=== PATIENT | male | born 1965 | race African-American/Black ===

== ENCOUNTER 2018-09-30 10:24 | Day surgery (SDC) | payer MEDICAID, SELFPAY ==
[2018-09-30 10:45] VITALS: BP 107/73; PULSE 86; RESP 16; TEMP 36.6; O2SAT 100
[2018-09-30] MEDS: Lactated Ringers 1,000 ML 30 ML IV (11:35)
--- NOTE | 2018-09-30 12:03 | COLE_ITS ---
Date of service: 09/30/18 Time of Service: 12:02 Colonoscopy Report Date of procedure: 09/30/18 Pre-op diagnosis general: Colorectal cancer screen Post-op diagnosis procedure note: other (Normal colon to the cecum) Procedure: Colonoscopy to the cecum Surgeon: Ameya Peraza Anesthesia proc note operative: MAC (Debra Medina CRNA; ASA 2 Mallampati class) Estimated blood loss (mL): 0 Pathology: none sent Complications: None Disposition: same day Indications: 52-year-old gentleman presenting for colorectal cancer screening by colonoscopy. He has been asymptomatic, and has no family history of colorectal cancer. The colonoscopy procedure was reviewed with him, and the risks of the procedure were discussed. All his questions were answered to his satisfaction, and consent was obtained to proceed with colonoscopy Prep: Miralax/Dulcolax Procedure Start Time: 12:03 Procedure End Time: :18 Retraction Time: 12 Findings: Examining the colon from cecum to anus, no abnormalities are noted in the colon , rectum, and anorectal junction. Procedure Description: The patient was seen in the day surgery waiting area. His identification was confirmed, and procedure checked. He was then brought to the procedure room. Monitoring for telemetry, blood pressure, oxygen saturation, and end tidal CO2 monitoring were applied. An appropriate time out was performed to confirm, identification, allergies, medication, procedure, was performed. Sedation was titrated for affect by the SPECIAL PROGRAMS DIRECTOR; Once adequate sedation was achieved, I performed a inspection of the external perineum, and a digitial rectal examination. No significant external abnormalities were noted. On digital rectal examination, there was no blood, no masses, good rectal tone, and a normal prostate. I advanced the colonoscope from the anus to the cecum under direct visualization. The cecum was identified by the ileal-cecal valve, and the appendiceal orifice. The scope was then withdrawn in circumferential manner from the cecum to the rectum. No abnormalites were noted in the colon. The scope was then withdrawn into the rectum, and retroflexed. No abnormalities were noted of the rectum or anorectal junction. The scope was then withdrawn, terminating the procedure. There were no complications during the procedure, and the patient tolerated the procedure well. He was returned to the day surgery recovery area in good condition. Plan: Will continue with routine screening for colorectal cancer according to current consensus guidelines, which is currently 10 years.
--- NOTE | 2018-09-30 12:46 | PDOC.DSDIS_ITS ---
Discharge Plan Disposition Patient Disposition: HOME Condition: Good Discharge Details Reason For Visit: Colorectal cancer screen Attending Provider: Ameya Peraza Primary Care Provider: Nicky Dave Home Meds and New Rx's Prescriptions: Continue clomipramine [Anafranil] 25 mg capsule 25 mg PO DAILY Qty: 30 RF: 2 cyclobenzaprine 10 mg tablet 10 mg PO TID PRNRF: 0 Discontinued bisacodyl [Dulcolax (bisacodyl)] 5 mg tablet,delayed release (DR/EC) 10 mg PO BID Qty: 4 RF: 0 polyethylene glycol 3350 [Miralax] 17 gram/dose powder 255 g PO ONCE Qty: 255 RF: 0 Discharge Instructions Instructions: Colonoscopy (DC) Activity:: Activity as Tolerated Diet:: As Tolerated Discharge Orders Discharge Orders: Discharge Order (Routine); Ordered 09/30/18 Ordered By: Ameya Peraza DS: Diagnosis Discharge Diagnosis (1) Encounter for colorectal cancer screening: Status: Acute Asessment and Plan: Colonoscopy performed: Colonoscopy Report Date of procedure: 09/30/18 Pre-op diagnosis general: Colorectal cancer screen Post-op diagnosis procedure note: other (Normal colon to the cecum) Procedure: Colonoscopy to the cecum Surgeon: Ameya Peraza Anesthesia proc note operative: MAC (Debra Medina CRNA; ASA 2 Mallampati class) Estimated blood loss (mL): 0 Pathology: none sent Complications: None Disposition: same day Indications: 52-year-old gentleman presenting for colorectal cancer screening by colonoscopy. He has been asymptomatic, and has no family history of colorectal cancer. The colonoscopy procedure was reviewed with him, and the risks of the procedure were discussed. All his questions were answered to his satisfaction, and consent was obtained to proceed with colonoscopy Prep: Miralax/Dulcolax Procedure Start Time: 12:03 Procedure End Time: 12:18 Retraction Time: 12 Findings: Examining the colon from cecum to anus, no abnormalities are noted in the colon, rectum, and anorectal junction. Procedure Description: The patient was seen in the day surgery waiting area. His identification was confirmed, and procedure checked. He was then brought to the procedure room. Monitoring for telemetry, blood pressure, oxygen saturation, and end tidal CO2 monitoring were applied. An appropriate time out was performed to confirm, identification, allergies, medication, procedure, was performed. Sedation was titrated for affect by the ASSOCIATE DIRECTOR DATA & ANALYTICS; Once adequate sedation was achieved, I performed a inspection of the external perineum, and a digitial rectal examination. No significant external abnormalities were noted. On digital rectal examination, there was no blood, no masses, good rectal tone, and a normal prostate. I advanced the colonoscope from the anus to the cecum under direct visualization. The cecum was identified by the ileal-cecal valve, and the appendiceal orifice. The scope was then withdrawn in circumferential manner from the cecum to the rectum. No abnormalites were noted in the colon. The scope was then withdrawn into the rectum, and retroflexed. No abnormalities were noted of the rectum or anorectal junction. The scope was then withdrawn, terminating the procedure. There were no complications during the procedure, and the patient tolerated the procedure well. He was returned to the day surgery recovery area in good condition. Plan: Will continue with routine screening for colorectal cancer according to current consensus guidelines, which is currently 10 years.
[2018-09-30 13:15] VITALS: BP 105/80; PULSE 89; RESP 16; TEMP 35; O2SAT 97
== END 2018-09-30 13:10 | disposition home or self-care (01) ==
PROVIDERS: PCP Nurse Practitioner Family; Visit Provider Surgery
PROC: 0DJD8ZZ Inspection of Lower Intestinal Tract, Via Natural or Artificial Opening Endoscopic (ICD-10-PCS; CPT 45378; principal; 2018-09-30 12:00)
DX: Z12.11 Encounter for screening for malignant neoplasm of colon (principal); K21.9 Gastro-esophageal reflux disease without esophagitis; F17.210 Nicotine dependence, cigarettes, uncomplicated
CPT/HCPCS: 45378

== ENCOUNTER 2019-03-19 11:00 | Emergency (ER) | payer MEDICAID, SELFPAY ==
[2019-03-19] VITALS (11 sets, daily range): BP systolic 108–121; BP diastolic 82–83; PULSE 72–110; RESP 10–22; TEMP 37; O2SAT 92–100
--- NOTE | 2019-03-19 11:08 | ED.GENADUL_ITS ---
Discharge Plan Disposition Patient Disposition: HOME Condition: Good Discharge Details Chief Complaint: Chest Pain Clinical Impression: Dehydration, Heart palpitations Primary Care Provider: Nicky Dave ED Provider: Francis Rascon Home Meds and New Rx's Prescriptions: No Action clomipramine [Anafranil] 25 mg capsule 25 mg PO DAILY Qty: 30 RF: 2 cyclobenzaprine 10 mg tablet 10 mg PO TID PRNRF: 0 Discharge Instructions Instructions: Palpitations (ED) Additional Instructions: Please drink 10 to 12 cups of water every day. Avoid any substances which could cause an increase in your heart rate. If you notice any worsening of your symptoms, or any new symptoms such as vomiting, diarrhea, fever, chills, shortness of breath, chest pain, numbness, weakness, or fainting , please return immediately to the emergency department for reevaluation. Please follow up with your primary care provider as soon as possible for reassessment and reevaluation. As always, it was a pleasure participating in your medical care today. Referrals: Nicky Dave [Primary Care Provider] - Discharge Data Discharge Date/Time-TO BE ENTERED AT DEPARTURE: 03/19/19 12:39 Medical Decision Making This is a pleasant 54-year-old -[place] male who presents for evaluation of palpitations and dehydration. He has not been drinking much over the last 48 hours, he did do a line of Hope last night and had some vigorous sex with his this denies any other drugs or other significant activities. Upon EMS his initial arrival his heart rate was in the 130s, he was given a 250 cc bolus and upon arrival here in the ED his heart rate was down to 100. Zickel exam demonstrates no significant abnormalities aside for notably dry mucous membranes. No concerning family history of cardiac disease, personal history of cardiac disease. No history of hypertension high cholesterol or diabetes. EKG shows no evidence of STEMI, or ACS. No significant dysrhythmia. No pulmonary embolism red flags. Chest x-ray is negative for acute process. Patient was given 1-1/2 L of normal saline and had complete resolution of his symptoms. Heart rate is currently in the 60s, he is feeling much better. I did offer a monitor to go home with as well as prolonged observation here, the patient has elected to go home. Understands the risks and benefits of this. This was made through shared decision making process with full understanding. Suspected diagnosis of dehydration, compounded by his cocaine use yesterday. I have extensively reviewed the treatment plan and discharge instructions with the patient and their family. I have addressed all patient concerns at this time. The patient and family was made aware of what symptoms to monitor for that would warrant a return to the emergency department. Discussed the plan with the patient and family, they demonstrate verbal understanding and agreement with our assessment and plan at this time. EKG 11: 02 Rate 98, intervals normal, sinus rhythm, RSR prime in V2. Minimal less than 1 mm J-point elevation in V4, no evidence of ST depression. Inverted T wave in V1 and V2 peer no Q waves. No evidence of STEMI. TECHNIQUE: Imaging protocol: XR of the chest, 2 views. COMPARISON: CR CHEST 2 VIEWS PA,LAT 10/14/2015 10:25 AM FINDINGS: Lungs: Unremarkable. No consolidation. Pleural space: Unremarkable. No pleural effusion. No pneumothorax. Heart/Mediastinum: Unremarkable. No cardiomegaly. Bones/joints: Unremarkable. IMPRESSION: No acute findings. Dictated and Authenticated by: Davin Adams MD. Ordering:ROSELYN Blanco MD HPI General Date/Time Provider Initiated Documentation: 03/19/19 11:02 . HPI Narrative: This is a pleasant 53-year-old male who presents today for evaluation of palpitations. Patient states that earlier this morning he woke up and had some palpitations. Because of this he called 911, to the ER. Upon arrival to the ER the patient's heart rate was 100 105. Upon EMS initial arrival his heart rate was in the 130s, but he was given a 250 cc bolus of normal saline prior to his arrival to the ER. The patient denies any chest pain or shortness of breath. He denies any chest heaviness, tightness, arm neck or shoulder pain. He does state that last night he did a line of Coke and then had fairly vigorous sex, and over the last 48 hours he has not been drinking much of anything. He denies any abdominal pain, vomiting or diarrhea. He denies any previous cardiac history, family history of cardiac disease. No other complaints at this time. No other modifying factors. Denies PE risk factors such as recent long car rides, immobilization, recent surgery, prior history of DVT or PE, family history of PE or DVT, morbid obesity, exogenous estrogen and smoking, hemoptysis, history of cancer. Related Data Home Medications Medication Instructions Recorded Confirmed cyclobenzaprine 10 mg tablet 10 mg PO TID PRN 07/26/18 03/19/19 clomipramine 25 mg capsule 25 mg PO DAILY #30 cap 08/23/18 03/19/19 Previous Rx's Medication Instructions Recorded clomipramine 25 mg capsule 25 mg PO DAILY #30 cap 08/23/18 Allergies Allergy/AdvReac Type Severity Reaction Status Date / Time Iodinated Contrast- Oral and Allergy Unknown itching Unverified 03/19/19 11:14 IV Dye [Iodinated Contrast Media - IV Dye] diclofenac [Diclofenac] AdvReac Intermediate GI Unverified 03/19/19 11:14 ibuprofen [From Motrin] AdvReac Intermediate upset Unverified 03/19/19 11:14 stomach misoprostol AdvReac Intermediate GI Unverified 03/19/19 11:14 oxycodone [Oxycodone] AdvReac Intermediate nightmares Unverified 03/19/19 11:14 ivp dye Allergy Mild Itching Uncoded 03/19/19 11:14 Review of Systems Review of Systems All systems reviewed & are unremarkable except as noted in HPI and below PFSH Medical History History of nephrolithiasis (Acute) Nondisplaced fracture of fifth left metatarsal bone (Acute ~04/2010) Back pain, lumbosacral Erectile dysfunction Gastroesophageal reflux disease Genital herpes Hx of substance abuse Migraine Tobacco use Surgical History H/O colonoscopy (Chronic 09/30/18) Hx of arthroscopy of knee (Resolved) Hx of hernia repair (Resolved) Social History Smoking/Tobacco Use Status: Current every day Tobacco Type: cigarettes Tobacco: How many years used: 30 Alcohol Intake: current Alcohol Intake frequency: a few times a week Alcohol type: beer and wine Drug use: Daily Substance use type: marijuana and crack/cocaine Do you feel safe at home: Yes Do you feel safe in your relationship?: Yes Exam Narrative Exam Narrative: 1.Const: Well-nourished, Well-developed, appearing stated age 2.Eyes: PERRL, no conjunctival injection, and symmetrical lids. 3.ENT: Atraumatic external nose and ears. Dry MM. Neck: Symmetric, trachea midline, No thyromegaly. 4.CVS: +S1/S2, No murmurs or gallops. Peripheral pulses 2+ and equal in all extremities. Brisk capillary refill in all extremities. 5.RESP: Unlabored respiratory effort. Clear to auscultation bilaterally. No wheezes rales or rhonchi 6.GI: Soft, Nontender/Nondistended, No hepatosplenomegaly. No guarding or rebound. 7.MSK: Normocephalic/Atraumatic, Extremities w/o deformity or ttp No cyanosis or clubbing, Normal movement of all extremities 8.Skin: Warm, Dry. No rashes or lesions. 9.Neuro: log processor operator II-XII grossly intact. Sensation grossly intact, no focal neurologic deficits. 10.Psych: (AAO) x3. Appropriate mood and affect
[2019-03-19] MEDS: Normal Saline 1,000 ML 1000 ML IV (11:16)
[2019-03-19 11:17] LABS: Absolute Basophil Count 0.02 k/cumm (0.0-0.2); Absolute Eosinophil Count 0.11 k/cumm (0.0-0.7); Absolute Lymphocyte Count 1.61 k/cumm (1.2-3.4); Absolute Monocyte Count 0.54 k/cumm (0.11-0.7); Basophils % 0.5; Eosinophils % 2.8; HCT 40.9 % (40.0-50.0); HGB 14.5 g/dL (13.5-17.5); Lymphocytes % 40.5; Mean Corp. HGB Concentration 35.5 g/dL (32.0-36.0); Mean Corpuscular Hemoglobin 32.2 pg (27.0-33.0); Mean Corpuscular Volume 90.7 fL (80-95); Monocytes % 13.6; Neutrophils % 42.6; Platelet Count 249 x1000/uL (130-400); RBC 4.51 m/cumm (4.50-6.00); RBC Distribution Width 12.2 % (11.8-14.1); White Blood Cell Count 3.98 k/cumm (4.4-10.8)
--- NOTE | 2019-03-19 11:28 | DI.RAD_ITS ---
SYMPTOMS/DIAGNOSIS: PALPITATIONS PA AND LATERAL CHEST: Comparison 10/14/15. The heart is normal in size. The lungs are clear. The mediastinal structures and pleura appear intact. CONCLUSION: Normal chest.
[2019-03-19 11:35] LABS: ALT 48 U/L (12-78); AST 51 U/L (15-37); Albumin 3.4 g/dL (3.4-5.0); Alkaline Phosphatase 61 U/L (46-116); BUN 12 mg/dL (7-18); Bilirubin, Total 0.3 mg/dL (0.2-1.0); CREATININE 0.93 mg/dL (0.70-1.30); Calcium 8.5 mg/dL (8.5-10.1); Chloride 103 mmol/L (98-107); Glucose 94 mg/dL (70-100); Magnesium 1.9 mg/dL (1.8-2.4); PHOSPHORUS 2.8 mg/dL (2.6-4.7); Potassium 3.9 mmol/L (3.5-5.1); Sodium 138 mmol/L (136-145); TSH (W/Ref FT4) 0.69 uIU/mL (0.358-3.74); Total Protein 7.1 g/dL (6.4-8.2)
[2019-03-19 11:36] LABS: Troponin I < 0.02 ng/mL (0.00-0.06)
--- NOTE | 2019-03-19 11:49 | DI.VRAD_ITS ---
EXAM: XR Chest, 2 Views EXAM DATE/TIME: 03/19/2019 11:05 AM CLINICAL HISTORY: 53 years old, male; Signs and symptoms; Other: Palpitations, dizziness. TECHNIQUE: Imaging protocol: XR of the chest, 2 views. COMPARISON: CR CHEST 2 VIEWS PA,LAT 10/14/2015 10:25 AM FINDINGS: Lungs: Unremarkable. No consolidation. Pleural space: Unremarkable. No pleural effusion. No pneumothorax. Heart/Mediastinum: Unremarkable. No cardiomegaly. Bones/joints: Unremarkable. IMPRESSION: No acute findings. Dictated and Authenticated by: Davin Adams MD. Ordering:ROSELYN Blanco MD
[2019-03-19 14:08] LABS: *AMPHETAMINES SCREEN URINE Negative (Negative); *BARBITURATES SCREEN URINE Negative (Negative); *BENZODIAZEPINES SCREEN URINE Negative (Negative); Cannabinoids THC POSITIVE (Negative); Cocaine Screen,Urine POSITIVE (Negative); METHADONE URINE SCREEN Negative (Negative); OPIATES URINE SCREEN Negative (Negative); Tricyclic Antidepressants Negative (Negative)
== END 2019-03-19 12:39 | disposition home or self-care (01) ==
PROVIDERS: Emergency Provider Student in an Organized Health Care Education/Training Program; PCP Nurse Practitioner Family
DX: R00.2 Palpitations (principal); E86.0 Dehydration
CPT/HCPCS: 36415; 80053; 80307; 93005; 96360; 99285; 71046; 83735; 84100; 84443; 84484; 85025; 93010

== ENCOUNTER 2019-04-19 16:28 | Outpatient (REF) | payer MEDICAID, SELFPAY ==
[2019-04-19 21:39] LABS: ALT 46 U/L (12-78); AST 36 U/L (15-37); Albumin 3.6 g/dL (3.4-5.0); Alkaline Phosphatase 56 U/L (46-116); Bilirubin, Total 0.3 mg/dL (0.2-1.0); Ferritin 104 ng/mL (8-388); Total Protein 6.9 g/dL (6.4-8.2)
[2019-04-21 10:20] LABS: HIV-1/2 Ag & Ab Screen Negative (NEGAT)
[2019-04-21 10:21] LABS: Hepatitis B Surface Ag Negative (NEGAT); Hepatitis C Ab w Rflx HCV PCR Negative (NEGAT)
== END 2019-04-19 16:48 ==
LOC: NCHCN 16:28
PROVIDERS: PCP Nurse Practitioner Family; Visit Provider Family Medicine
DX: R74.0 Nonspecific elevation of levels of transaminase and lactic acid dehydrogenase [LDH] (principal); Z11.4 Encounter for screening for human immunodeficiency virus [HIV]; Z11.59 Encounter for screening for other viral diseases; Z01.84 Encounter for antibody response examination; Z00.00 Encounter for general adult medical examination without abnormal findings
CPT/HCPCS: 80076; 86803; 87340; 87389; 82728

== ENCOUNTER 2020-02-22 21:23 | Emergency (ER) | payer MEDICAID, SELFPAY ==
[2020-02-22 21:26] VITALS: BP 124/89; PULSE 81; RESP 21; TEMP 37.1; O2SAT 99
[2020-02-22 21:30] VITALS: RESP 16
[2020-02-22 21:59] LABS: Abs Immature Grans 0.01 k/cumm (0.0-0.09); Absolute Basophil Count 0.02 k/cumm (0.0-0.2); Absolute Eosinophil Count 0.14 k/cumm (0.0-0.7); Absolute Lymphocyte Count 1.34 k/cumm (1.2-3.4); Absolute Neutrophil Count 3.29 k/cumm (1.2-6.7); Basophils % 0.4; Eosinophils % 2.6; HCT 37.6 % (40.0-50.0); HGB 13.2 g/dL (13.5-17.5); Immature Grans % 0.2 %; Lymphocytes % 24.8; Mean Corp. HGB Concentration 35.1 g/dL (32.0-36.0); Mean Corpuscular Hemoglobin 32.2 pg (27.0-33.0); Mean Corpuscular Volume 91.7 fL (80-95); Mean Platelet Volume 8.8 fL (8.0-11.0); Monocytes % 11.1; Neutrophils % 60.9; Platelet Count 259 x1000/uL (130-400); RBC Distribution Width 12.6 % (11.8-14.1)
[2020-02-22] MEDS: Normal Saline 1,000 ML 1000 ML IV (22:03)
[2020-02-22] MEDS: LORazepam 2 MG/ML VIAL 1 MG IVP (22:03)
[2020-02-22] MEDS: Aspirin 81 MG CHEW 324 MG CH (22:03)
[2020-02-22 22:15] LABS: ALT 39 U/L (16-63); AST 33 U/L (15-37); Albumin 3.3 g/dL (3.4-5.0); Alkaline Phosphatase 47 U/L (46-116); Anion Gap 4.9 mmol/L (3-11); BUN 13 mg/dL (7-18); Bilirubin, Total 0.2 mg/dL (0.2-1.0); CO2 29.1 mmol/L (21.0-32.0); CREATININE 0.82 mg/dL (0.70-1.30); Calcium 8.7 mg/dL (8.5-10.1); Chloride 102 mmol/L (98-107); Glucose 92 mg/dL (74-106); Magnesium 2.1 mg/dL (1.8-2.4); Potassium 3.7 mmol/L (3.5-5.1); Sodium 136 mmol/L (136-145); Total Protein 6.7 g/dL (6.4-8.2)
[2020-02-22 22:16] LABS: Troponin I < 0.05 ng/Ml (<0.06)
--- NOTE | 2020-02-22 22:25 | DI.RAD_ITS ---
EXAM: XR CHEST 2V PA LATERAL CLINICAL HISTORY: chest pain TECHNIQUE: COMPARISON: XR CHEST 2V PA LATERAL from 03/19/2019 FINDINGS: The heart is not enlarged. There appear to be mild changes of COPD and pulmonary scarring. In rome rison with prior chest film of March 19, 2019 there is question of patchy new radiodensities in the rig ht middle lobe. No other significant change seen. No pleural effusion. IMPRESSION: Possible new right middle lobe infiltrate, appropriate follow-up studies requested.
--- NOTE | 2020-02-22 22:26 | ED.GENADUL_ITS ---
Discharge Plan Disposition Patient Disposition: HOME Condition: Stable Discharge Details Chief Complaint: Chest Pain Clinical Impression: Chest pain, Cocaine substance abuse Primary Care Provider: Nicky Dave ED Provider: Steven Armstrong Home Meds and New Rx's Prescriptions: Continued clomipramine [Anafranil] 25 mg capsule 25 mg PO DAILY Qty: 30 RF: 2 cyclobenzaprine 10 mg tablet 10 mg PO TID PRNRF: 0 Discharge Instructions Instructions: Chest Pain (ED) Additional Instructions: Please avoid further use of cocaine as it can cause heart attack, stroke, impotence. Continue your regularly prescribed medications. Return to the emergency department for any acute concern. Medical Decision Making <NEETA You - Last Filed: 02/22/20 23:21> Is a 54-year-old patient presenting the emergency room for complaints of chest pressure and chest pain. Patient reports onset of 5 out of 10 chest pressure which began approximately 1 hour 45 minutes prior to arrival. Patient denies associated shortness of breath. Patient describes the pain is intermittent however when he went to bed he was sitting forward to just the TV felt transiently breathless for a few seconds then reports return of his chest pain. Patient reports associated left arm tingling in the last 30 minutes no associated weakness. Patient denies headache or dizziness. Patient denies vision change. No upper respiratory symptoms. He denies cough. Patient denies any back pain. No radiating pain to neck or jaw. Patient denies nausea, vomiting or abdominal pain. Denies diaphoresis. Does report sweaty palms bilaterally. Patient does admit to 4 shots of alcohol, smoking 2 joints and snorting 1 line of cocaine today. Patient does report a history of chest pain approximately 1 year ago after similar use and reports he was dehydrated. Patient has no personal history of [place]. Patient has a [id number] smoking history, patient has a history of approximately 15 years of crack use, he has not used in the last 16 years. Patient reports continued cocaine use which he approximates twice per month. Patient smokes marijuana daily. Patient denies use of any daily medications. Patient reports family history includes mother having strokes prior to the age of 65 and of a heart attack at the age of 67, father had no significant cardiac history. Patient denies taking any aspirin prior to arrival. Patient denies any other concerns or complaints this evening. Initial evaluation of the patient reveals normal vital signs. Regular heart rate. Patient in no apparent distress at this time. Patient is continue to complain of 5 out of 10 pain. Patient has clear breath sounds. Normal cardiovascular exam. No abdominal pain on exam. No obvious distal edema present. Patient has easy unlabored breathing. He is in no apparent distress at this time. Cardiac labs as well as EKG and chest x-ray ordered. Patient's initial EKG reveals sinus rhythm with a heart rate of 68. Question of ST segment elevation isolated to V3. QTC of 378. This seems new compared to his old EKG on 03/19/2019. This was reviewed with Dr. Steven Armstrong. Patient given aspirin as well as Ativan ordered for symptomatic relief. Given concern of patient's symptoms likely due to vasospasm given his drug use prior to onset of symptoms. Patient's labs reveal no significant leukocytosis. Red blood cells 4.1, H&H 13.2 and 37.6 respectively. Patient has no electrolyte abnormalities noted. Patient's initial troponin is normal. Patient's chest x-ray reveals no acute findings. Specifically no cardiomegaly or pleural effusion. No identified infectious process. After patient's Ativan he is reporting symptomatic relief. We will plan to sign patient out to Dr. Steven Armstrong pending repeat troponin and EKG. <Steven Armstrong MD - Last Filed: 02/23/20 01:36> Received signout from physician assistant production editor Patrick, please see her note regarding details of the initial presentation, exam, plan of care. Remains chest pain-free throughout my care. Repeat troponin obtained and negative. Patient admonished to cease use of cocaine. He is stable, pain-free, appropriate discharged home at this time. ECG Data Interpretation: EKG at 0114 hrs. reveals normal sinus rhythm, rate of 71, the QRS is narrow, there was note of discrete ST segment changes to V3 on the initial EKG taken at 2130 hrs. These have appeared to resolve. There is no ST segment elevation HPI <NEETA You - Last Filed: 02/22/20 23:21> General Date/Time Provider Initiated Documentation: 02/22/20 21:24 . HPI Narrative: Patient presents for complaints of chest pressure and mild discomfort for the last 1 hour and 45 minutes. Patient reports symptoms have been intermittent. Patient reports symptoms resolved within when sitting in bed he fell transiently breathless and had return of chest pain. Patient denies obvious shortness of breath, difficulty breathing or increase in respiratory effort. Denies headache or dizziness. Denies diaphoresis. Does report mild swelling of his palms bilaterally associated with the pressure. Patient does report a tingling into his left arm which he noted in the last 30 minutes. Patient denies obvious weakness. Denies abdominal pain, nausea or vomiting. Patient reports today he has had 4 shots of alcohol, smoke 2 joints, use 1 line of cocaine. Patient reports cocaine use was approximately 1 to 2 hours prior to onset of the symptoms. Patient does report a history of chest pain 1 year ago which he describes as very similar to today. At that time patient was noted to be dehydrated. Patient does report occasional sensation of heart racing since onset of symptoms. Related Data Home Medications Medication Instructions Recorded Confirmed cyclobenzaprine 10 mg tablet 10 mg PO TID PRN 07/26/18 03/19/19 clomipramine 25 mg capsule 25 mg PO DAILY #30 cap 08/23/18 03/19/19 Previous Rx's Medication Instructions Recorded clomipramine 25 mg capsule 25 mg PO DAILY #30 cap 08/23/18 Allergies Allergy/AdvReac Type Severity Reaction Status Date / Time Iodinated Contrast Media Allergy Unknown itching Unverified 03/19/19 11:14 [Iodinated Contrast Media - IV Dye] diclofenac [Diclofenac] AdvReac Intermediate GI Unverified 03/19/19 11:14 ibuprofen [From Motrin] AdvReac Intermediate upset Unverified 03/19/19 11:14 stomach misoprostol AdvReac Intermediate GI Unverified 03/19/19 11:14 oxycodone [Oxycodone] AdvReac Intermediate nightmares Unverified 03/19/19 11:14 ivp dye Allergy Mild Itching Uncoded 03/19/19 11:14 General Stated Complaint: Chest Pain BRENDA: 2 Review of Systems <NEETA You - Last Filed: 02/22/20 23:21> All systems reviewed & are unremarkable except as noted in HPI and below Constitutional Constitutional: Denies chills, Denies excessive sweating, Denies fatigue, Denies fever(s), Denies headache(s), Denies lethargy, Denies malaise and Denies weakness ENT Ears, Nose, Mouth, and Throat: Denies dizziness, Denies headache(s), Denies nasal discharge, Denies neck pain and Denies sore throat Cardiovascular Cardiovascular: Reports chest pain, Denies diaphoresis, Denies syncope, Denies lightheadedness, Reports radiating jaw, neck or arm pain (Tingling in left arm), Reports palpitations and Denies dyspnea Respiratory Respiratory: Denies cough and Denies dyspnea Gastrointestinal Gastrointestinal: Denies abdominal pain, Denies cramping, Denies heartburn, Denies diarrhea, Denies nausea and Denies vomiting Genitourinary Genitourinary: Denies oliguria, Denies difficulty urinating and Denies dysuria Musculoskeletal Musculoskeletal: Denies neck pain and Denies numbness Neurologic Neurologic: Denies dizziness, Denies syncope, Denies headache(s), Denies numbness and Denies weakness Endocrine Endocrine: Denies excessive sweating, Denies fatigue and Reports palpitations PFSH <NEETA You - Last Filed: 02/22/20 23:21> Medical History Back pain, lumbosacral Erectile dysfunction Gastroesophageal reflux disease Genital herpes History of nephrolithiasis (Acute) Hx of substance abuse Migraine Nondisplaced fracture of fifth left metatarsal bone (Acute ~04/2010) Tobacco use Surgical History (Updated 10/13/18 @ 10:48 by Andra Felder RN) H/O colonoscopy (Chronic 09/30/18) 09/30/18 Dr Peraza, no abnormalities, repeat 10 years Hx of arthroscopy of knee (Resolved) Hx of hernia repair (Resolved) Social History Smoking/Tobacco Use Status: Current every day Tobacco Type: cigarettes Smoking packs per day: 1 Smoking cigarettes per day: 20.0 Years smoked: 30 Smoking pack- years: 30.00 Tobacco: How many years used: 30 Alcohol Intake: current Alcohol Intake frequency: 0-2 drinks per day Alcohol type: beer and wine Drug use: Occasionally Substance use type: marijuana and crack/cocaine Details: snorts cocaine 1/week Do you feel safe at home: Yes Do you feel safe in your relationship?: Yes Exam <NEETA You - Last Filed: 02/22/20 23:21> Narrative Exam Narrative: CONST: Healthy appearing patient, in no acute distress. Well hydrated. Alert and oriented. HENMT: Head nomocephalic, normal to inspection. Atraumatic. Hearing grossly normal. EYES: General normal appearance. Alignment normal. Eyelids normal. Conjunctiva normal. Sclera normal. PERRL. NECK: Normal visual inspection. FROM. No lymphadenopathy. Trachea midline. No Midline tenderness. CHEST: Normal insepection of the chest. RESP: Normal respiratory effort. Speaking full sentences. No cough. No wheezing. No retractions. Clear to auscaltation. Breath sound equal and present bilaterally. CARDIO: No JVD. Normal PMI. Regular Rate. Regular Rhythm. Normal peripheral pulses. GI: Normal inspection of abdomen. No distension. Soft. Nontender. Bowel sounds present in all 4 quadrants. No rebound. No gaurding. MUSCULOSKELETAL: Normal Gait. FROM of all extremities. Sensation intact distally. No distal lower extremity edema present bilaterally SKIN: Normal. Dry. No rashes. NEURO: Alert and awake. Speech clear. PSYCH: Normal affect. Cooperative. Course <NEETA You - Last Filed: 02/22/20 23:21> Vital Signs Vital signs: Vital Signs Temperature 37.1 C 02/22/20 21:26 Pulse 81 02/22/20 21:26 Respiratory Rate 21 02/22/20 21:26 Blood Pressure 124/89 02/22/20 21:26 Pulse Oximetry 99 02/22/20 21:26 Temperature 37.1 C 02/22/20 21:26 Temperature Source Skin 02/22/20 21:26 Pulse 81 02/22/20 21:26 Respiratory Rate 16 02/22/20 21:30 Respiratory Effort 02/22/20 21:30 Respiratory Depth Normal 02/22/20 21:30 Respiratory Pattern Normal 02/22/20 21:30 Blood Pressure 124/89 02/22/20 21:26 Blood Pressure Position Sitting 02/22/20 21:26 Pulse Oximetry 99 02/22/20 21:26 Oxygen Delivery Method Room Air 02/22/20 21:26 Oxygen Flow Rate 0 02/22/20 21:26 Pain Level 1 02/22/20 21:26 Lab/Test Results Lab/Test Results: Laboratory Tests Range/Units 02/22/20 02/22/20 21:55 21:55 WBC (4.4-10.8) k/cumm 5.40 RBC (4.50-6.00) m/cumm 4.10 L Hgb (13.5-17.5) g/dL 13.2 L Hct (40.0-50.0) % 37.6 L MCV (80-95) fL 91.7 MCH (27.0-33.0) pg 32.2 MCHC (32.0-36.0) g/dL 35.1 RDW (11.8-14.1) % 12.6 Plt Count (130-400) x1000/uL 259 MPV (8.0-11.0) fL 8.8 Immature Gran % % 0.2 Neutrophils % 60.9 Lymphocytes % 24.8 Monocytes % 11.1 Eosinophils % 2.6 Basophils % 0.4 Absolute Neutrophils (1.2-6.7) k/cumm 3.29 Absolute Lymphocytes (1.2-3.4) k/cumm 1.34 Absolute Monocytes (0.11-0.7) k/cumm 0.60 Absolute Eosinophils (0.0-0.7) k/cumm 0.14 Absolute Basophils (0.0-0.2) k/cumm 0.02 Sodium (136-145) mmol/L 136 Potassium (3.5-5.1) mmol/L 3.7 Chloride (98-107) mmol/L 102 Carbon Dioxide (21.0-32.0) mmol/L 29.1 Anion Gap (3-11) mmol/L 4.9 BUN (7-18) mg/dL 13 Creatinine (0.70-1.30) mg/dL 0.82 Estimated GFR/1.73 m2 (mL/min/1.73m2) >= 60.00 Glucose (74-106) mg/dL 92 Calcium (8.5-10.1) mg/dL 8.7 Magnesium (1.8-2.4) mg/dL 2.1 Total Bilirubin (0.2-1.0) mg/dL 0.2 AST (15-37) U/L 33 ALT (16-63) U/L 39 Alkaline Phosphatase (46-116) U/L 47 Troponin I (<0.06) ng/Ml < 0.05 Total Protein (6.4-8.2) g/dL 6.7 Albumin (3.4-5.0) g/dL 3.3 L Sign Out <NEETA You - Last Filed: 02/22/20 23:21> Sign Out Data: Sign Out Comment: signed out pending disposition, repeat troponin, and repeat ECG Last updated by Ellie Nguyen PA at 02/22/20 23:19
--- NOTE | 2020-02-22 22:46 | DI.VRAD_ITS ---
PROCEDURE INFORMATION: Exam: XR Chest, 2 Views Exam date and time: 02/22/2020 10:25 PM Age: 54 years old Clinical indication: Chest pain; Type not specified TECHNIQUE: Imaging protocol: XR of the chest Views: 2 views. COMPARISON: CR XR CHEST 2V PA LATERAL 03/19/2019 11:28 AM FINDINGS: Lungs: Unremarkable. No consolidation. Pleural space: Unremarkable. No pleural effusion. No pneumothorax. Heart/Mediastinum: Unremarkable. No cardiomegaly. Bones/joints: Unremarkable. IMPRESSION: No acute findings. Dictated and Authenticated by: Balwinder Caro MD. Ordering:ALBERTO Argueta MD
[2020-02-22 23:01] VITALS: BP 105/61; PULSE 71; RESP 14; O2SAT 96
[2020-02-23 01:18] VITALS: BP 108/75; PULSE 64; RESP 17; TEMP 36.7; O2SAT 94
[2020-02-23 01:32] LABS: Troponin I < 0.05 ng/Ml (<0.06)
--- NOTE | 2020-02-23 09:42 | ED.FU.B_ITS ---
Radiologist called the ED to note that patient's chest x-ray from last evening notes a possible new right middle lobe infiltrate. This chest x-ray was read as negative by virtual radiology last night. Per review of patient's chart, he was seen last night for chest tightness but denied any cough or shortness of breath, and he was afebrile and a normal white blood cell count but with an initial O2 sat of 99% then 94%. Spoke with patient over the phone this morning and he states he had had some chest tightness but denied any fever, cough or shortness of breath. This patient has a history of tobacco smoking, marijuana and cocaine use in addition to daily alcohol so will treat these cxr findings with antibiotics. A prescription for Augmentin 875/1 2 5 mg, 1 tab p.o. twice daily x7 days, # 14 was called into [facility] pharmacy. Patient was advised to follow-up with his primary care doctor or return here with any concerns.
== END 2020-02-23 01:50 | disposition home or self-care (01) ==
PROVIDERS: Physician Assistant; Emergency Provider Emergency Medicine; PCP Nurse Practitioner Family
DX: R07.89 Other chest pain (principal); F14.10 Cocaine abuse, uncomplicated
CPT/HCPCS: 80053; 93005; 96361; 96374; 99284; 71046; 83735; 84484; 85025; 93010; J2060

== ENCOUNTER 2020-04-01 00:56 | Outpatient (CLI) | payer MEDICAID, SELFPAY ==
--- NOTE | 2020-04-01 09:00 | ETT_ITS ---
APPROVED REPORT Exam: Exercise Treadmill Patient Location: Out-Patient Room/Bed: Stress Nurse: Yanelis Ball RN BMI: 19.78 Indications: Patient reports intermittent midsternal/substernal chest pressure (5/10 at worst) at res t (and belching) and ???when thinking??? for the past 3 weeks. Patient states he has been under a lot of pressure recently being engaged and with his brother who has been diagnosed with stage 4 cancer. Medical History Medical History: Panic Attacks. Cardiac Medications: No cardiac medications per patient. Allergies: Iodinated Contrast, Misoprostol, Oxycodone, Ibuprofen, Diclofenac. Cardiac Risk Factors: FHX of CAD, Smoking Previous Cardiac Procedures: None Pretest Chest Pain Characteristics: None Exercise History: Physically active Physical Disabilities: None Lung Sounds: Clear to auscultation Heart Sounds: Regular Stress Test Details Test: Exercise stress testing was performed using a Felipe protocol. Rest Stress HR Resting HR Supine: 57 bpm Max Heart Rate (APMHR): 167 bpm Target HR (85% APMHR): 141 bpm Max HR Achieved: 169 bpm % of APMHR: 101 HR response to stress: Normal HR response to stress BP Resting BP Supine: 104/68 mmHg Max BP: 150/64 mmHg BP response to stress: Normal blood pressure response to stress. ECG Resting ECG: Sinus Rhythm Stress ECG: Sinus Tachycardia ST Change: Normal Arrhythmia: None Recovery ECG: Sinus Rhythm Recovery ST Change: Normal Recovery Arrhythmia: None Clinical Reason for Termination: Fatigue Stress Symptoms: None Exercise duration: 12 min16 sec Highest Stage Reached: Stage 5: 5.0 mph at 18% grade. Exercise capacity: 13.65 METs Functional Capacity: Above average capacity Stress ECG Conclusion 1. The patient exercised for 12 minutes (14 METS) 2. Rate-pressure product was 18,000. The patient had no symptoms during stress and test was stopped due to fatigue 3. There was no evidence of ischemia on the ECG portion of the exam. 4. The Burgos Score ( 12) estimates an annual cardiovascular mortality of 0% and a five year survival o f 96%. Using the Burgos Score there is a low probability of any angiographic coronary disease. Stress Test Summary STAGE Time (mins) Speed (mph) Grade (%) HR BP SYMPTOMS METS Supine 57 104/68 1 3 1.7 10 100 112/64 4.6 2 6 2.5 12 112 128/60 7 3 9 3.4 14 125 134/60 10.2 4 12 4.2 16 145 12.9 1 min recovery 119 150/64 3 min recovery 71 136/68 6 min recovery 72 110/64
== END 2020-04-01 01:16 ==
PROVIDERS: PCP Family Medicine; Visit Provider Family Medicine
DX: R07.89 Other chest pain (principal); F41.0 Panic disorder [episodic paroxysmal anxiety]; Z82.49 Family history of ischemic heart disease and other diseases of the circulatory system
CPT/HCPCS: 93017

== ENCOUNTER 2020-05-06 14:52 | Outpatient (REF) | payer MEDICAID, SELFPAY ==
[2020-05-11 06:51] LABS: SARS-CoV-2 RNA Undetected (Undetected); SARS-CoV-2 Specimen Source Nasopharynx
== END 2020-05-06 15:12 ==
LOC: NCHCN 14:52
PROVIDERS: PCP Family Medicine; Visit Provider Nurse Practitioner Family
DX: Z20.828 Contact with and (suspected) exposure to other viral communicable diseases (principal)
CPT/HCPCS: U0003

== ENCOUNTER 2020-08-18 21:53 | Outpatient (REF) | payer MEDICAID, SELFPAY ==
[2020-08-20 15:10] LABS: COVID-19 RT-PCR Result Not Detected ((See Note))
== END 2020-08-18 22:13 ==
LOC: LBN 21:53
PROVIDERS: PCP Family Medicine; Visit Provider Nurse Practitioner Adult Health
DX: Z11.59 Encounter for screening for other viral diseases (principal)
CPT/HCPCS: U0003

== ENCOUNTER 2020-10-10 22:34 | Outpatient (REF) | payer MEDICAID, SELFPAY ==
[2020-10-10 19:09] LABS: Calculated LDL 91 mg/dL (<100); Cholesterol 200 mg/dL (<200); HDL Cholesterol 96 mg/dL (40-60); Triglyceride 66 mg/dL (<150)
[2020-10-10 19:29] LABS: Hemoglobin A1C 5.3 % (<5.7)
[2020-10-12 10:52] LABS: HIV-1/2 Ag & Ab Screen Negative (Negative)
[2020-10-14 09:29] LABS: Hepatitis B Surface Ag Negative (Negative)
== END 2020-10-10 22:54 ==
LOC: LBN 22:34
PROVIDERS: PCP Family Medicine; Visit Provider Family Medicine
DX: Z13.220 Encounter for screening for lipoid disorders (principal); Z13.1 Encounter for screening for diabetes mellitus; Z11.4 Encounter for screening for human immunodeficiency virus [HIV]; Z11.59 Encounter for screening for other viral diseases
CPT/HCPCS: 80061; 87340; 87389; 83036

== ENCOUNTER 2020-12-04 19:26 | Outpatient (REF) | payer MEDICAID, SELFPAY ==
[2020-12-06 17:07] LABS: COVID-19 RT-PCR Result Not Detected ((See Note))
== END 2020-12-04 19:27 | disposition home or self-care (01) ==
LOC: LBN 19:26
PROVIDERS: PCP Family Medicine; Visit Provider Nurse Practitioner Adult Health
DX: Z20.822 Contact with and (suspected) exposure to COVID-19 (principal)
CPT/HCPCS: U0003

== ENCOUNTER 2021-12-18 13:17 | Outpatient (REF) | payer MEDICAID, SELFPAY ==
[2021-12-18 13:20] VITALS: BP 107/71; PULSE 110; RESP 16; TEMP 36.4; O2SAT 100
--- NOTE | 2021-12-18 13:26 | ED.GENADUL_ITS ---
Discharge Plan Disposition Patient Disposition: HOME Condition: Stable Discharge Details Clinical Impression: Contusion of left shoulder, Contusion of left elbow, Contusion of rib on left side Primary Care Provider: Nguyễn Garcia ED Provider: Jayne Nance Home Meds and New Rx's Prescriptions: No Action No Known Home Meds 0RF Discharge Instructions Instructions: Contusion in Adults (ED), Rib Contusion (ED) Additional Instructions: Drink plenty of fluids and get plenty of rest. Alternate tylenol and motrin as needed and directed for pain. Apply ice to the affected area several times daily for 20 minutes at a time. Follow up with your primary care doctor in 1 week as needed. Return to the emergency department with any worsening or new concerning symptoms such as fever, cough, shortness of breath or any other concerns. Stand Alone Forms: Work Release Discharge Data Discharge Date/Time-TO BE ENTERED AT DEPARTURE: 12/18/21 15:36 Discharge Physician: Jayne Nance Medical Decision Making 56yo M presents with left shoulder, left elbow and left rib pain after slip and fall onto the ground 2 days ago. Denies any head injury, difficulty breathing, abdominal pain or vomiting. Vitals within normal limits on my assessment. Patient has tenderness to palpation of the left superior shoulder, left olecranon and left lateral ribs. Lungs clear. Abdomen soft nontender. No orthopedic deformities noted. Patient referred for x-rays which were unremarkable. Patient requested a work note. Advised on the importance of ice, alternating Tylenol and Motrin and rest. Advised to follow up with the primary care doctor for re-evaluation. Usual and customary return precautions given prior to discharge. Medical Records Medical records reviewed: Yes I reviewed the patient's medical records. Imaging Data Radiologic Study: Radiologist's impression: XR RIBS LT W PA ? LAT CHEST CLINICAL HISTORY: ? fall onto ground, pain L mid ribs, r/o fx. ? TECHNIQUE:? 2D digital imaging was performed. COMPARISON:? No exams were available for comparison FINDINGS: Left rib cage: There is no obvious left rib fracture.? No rib lesion. X-ray: Heart size normal.? Mediastinum is not widened.? Lungs are clear.? No pleural effusion.? No pneumothorax IMPRESSION: No obvious left rib fracture. No pneumothorax nor lung contusion. XR SHOULDER LT COMPLETE 2+V CLINICAL HISTORY: ? fall onto ground, r/o fx. ? TECHNIQUE:? 2D digital imaging was performed. COMPARISON:? No exams were available for comparison FINDINGS: No evidence of fracture or dislocation.? No abnormal soft tissue calc ifications.? Subacromial space appears unremarkable.? AC joint and ipsilateral clavicle unremarkable.? Bone density is normal. IMPRESSION: No fracture XR ELBOW LT COMPLETE CLINICAL HISTORY: ? fall onto elbow, tender olecranon, r/o fx. ? TECHNIQUE:? 2D digital imaging was performed. COMPARISON:? No exams were available for comparison FINDINGS: No evidence of fracture or joint effusion.? No swelling of the olecranon bursa.? Radial head unremarkable.? Epicondyles unremarkable.? Bone density normal IMPRESSION: No fracture. HPI General Mode of arrival: ambulatory . Date/Time Provider Initiated Documentation: 12/18/21 13:18 . Limitations to Documentation: no limitations . Information obtained by: patient . HPI Narrative: Patient is a 56-year-old male presents the ED with a complaint of left shoulder, left elbow and left wrist pain after fall 2 days ago. Patient states he tripped in a break in the ground and landed on his left elbow and left shoulder. He states he then hit his left ribs on the ground. He denies any head injury. He admits to pain with deep breath but otherwise denies any difficulty breathing, anterior chest pain, abdominal pain, nausea, vomiting. Related Data Home Medications Medication Instructions Recorded Confirmed Unknown [No Known Home Meds] 12/18/21 12/18/21 Allergies Allergy/AdvReac Type Severity Reaction Status Date / Time Iodinated Contrast Media Allergy Unknown itching Unverified 12/18/21 13:25 [Iodinated Contrast Media - IV Dye] diclofenac [Diclofenac] AdvReac Intermediate GI Unverified 12/18/21 13:25 ibuprofen [From Motrin] AdvReac Intermediate upset Unverified 03/19/19 11:14 stomach misoprostol AdvReac Intermediate GI Unverified 12/18/21 13:25 oxycodone [Oxycodone] AdvReac Intermediate nightmares Unverified 03/19/19 11:14 ivp dye Allergy Mild Itching Uncoded 03/19/19 11:14 General Stated Complaint: Chest/Rib BRENDA: 4 Review of Systems All systems reviewed & are unremarkable except as noted in HPI and below Constitutional Constitutional: Reports as per HPI, Denies chills and Denies fever(s) Eyes Eyes: Denies blurry vision ENT Ears, Nose, Mouth, and Throat: Denies dizziness, Denies sore throat and Denies throat swelling Cardiovascular Cardiovascular: Denies chest pain and Denies dyspnea Respiratory Respiratory: Denies cough and Denies dyspnea Gastrointestinal Gastrointestinal: Denies abdominal pain, Denies diarrhea and Denies vomiting Genitourinary Genitourinary: Denies hematuria and Denies dysuria Musculoskeletal Musculoskeletal: Denies back pain and Denies numbness Comments: L shoulder/elbow pain, L rib pain Integumentary/Breasts Skin/Breast: Denies lesions and Denies rash Neurologic Neurologic: Denies dizziness, Denies localized weakness and Denies numbness Allergic/Immunologic Allergic/Immunologic: Denies throat swelling PFSH All Active Problems (Updated 12/18/21 @ 15:14 by Jayne Nance DO) Contusion of left shoulder (Acute) Contusion of left elbow (Acute) Contusion of rib on left side (Acute) Encounter for colorectal cancer screening (Acute) Plantar wart (Acute 07/25/14) Neoplasm of skin (Acute 01/22/14) Medical History (Updated 12/18/21 @ 15:14 by Jayne Nance DO) Back pain, lumbosacral Erectile dysfunction Gastroesophageal reflux disease Genital herpes History of nephrolithiasis Hx of substance abuse Migraine Nondisplaced fracture of fifth left metatarsal bone (~04/2010) Tobacco use Surgical History (Updated 10/13/18 @ 10:48 by Andra Felder RN) H/O colonoscopy (09/30/18) 09/30/18 Dr Peraza, no abnormalities, repeat 10 years Hx of arthroscopy of knee Hx of hernia repair Social History Smoking/Tobacco Use Status: Current every day Tobacco Type: cigarettes Smoking packs per day: 1 Smoking cigarettes per day: 20.0 Years smoked: 30 Smoking pack- years: 30.00 Tobacco: How many years used: 30 Smoking risk assessment performed?: Yes Alcohol Intake: current Alcohol Intake frequency: 0-2 drinks per day Alcohol type: beer and wine Drug use: Occasionally Substance use type: marijuana Details: 3 sober from cocaine Do you feel safe at home: Yes Do you feel safe in your relationship?: Yes Exam Const General: cooperative and no acute distress Orientation: alert, awake and oriented x3 HENMT Head: normal to inspection Mouth: oral mucosae normal Eyes General: appearance normal, both eyes and all related structures Neck Neck: normal visual inspection Chest Chest/axillae images: 1. Tenderness to palpation to left anterior lateral ribs. There is no evidence of erythema, edema, crepitus, step-off or open wounds. Resp Effort & Inspection: normal respiratory effort and able to speak in complete sentences Auscultation: clear to auscultation bilaterally Cardio Rate: regular rate GI Palpation: soft, not firm, no guarding, not rigid and nontender Back/Spine/Pelvis Cervical Spine: No cervical spinal tenderness Thoracic/Lumbar Spine: No thoracic spinal tenderness and No lumbar spinal tenderness Skin General skin exam: no rashes or lesions noted Neuro General: patient alert, patient awake and patient oriented x3 Motor: muscle tone normal throughout Extrem Other: Tenderness to palpation to left distal clavicle near shoulder. There is no significant tenderness to palpation to left anterior posterior shoulder. There is pain with range of motion specifically abduction at left shoulder. No tenderness to palpation to remainder of clavicle. There is no tenderness to palpation to left upper arm. There is tenderness overlying left olecranon but no tenderness overlying the epicondyles or radial head. No tenderness to palpation or pain with range of motion in left wrist or hand. There is no deformity to the left upper extremity. Normal range of motion to right upper extremity. Psych Appearance: grossly normal Affect: normal affect Course Vital Signs Vital signs: Vital Signs Temperature 97.5 F L 12/18/21 13:20 Pulse 110 H 12/18/21 13:20 Respiratory Rate 16 12/18/21 13:20 Blood Pressure 107/71 12/18/21 13:20 Pulse Oximetry 100 12/18/21 13:20 Temperature 97.5 F L 12/18/21 13:20 Temperature Source Skin 12/18/21 13:20 Pulse 110 H 12/18/21 13:20 Respiratory Rate 16 12/18/21 13:20 Blood Pressure 107/71 12/18/21 13:20 Pulse Oximetry 100 12/18/21 13:20 Oxygen Delivery Method Room Air 12/18/21 13:20 Oxygen Flow Rate 0 12/18/21 13:20 Pain Level 7 12/18/21 13:20
--- NOTE | 2021-12-18 13:45 | DI.RAD_ITS ---
Exam(s) XR RIBS LT W PA LAT CHEST EXAM: XR RIBS LT W PA LAT CHEST CLINICAL HISTORY: fall onto ground, pain L mid ribs, r/o fx. TECHNIQUE: 2D digital imaging was performed. COMPARISON: No exams were available for comparison FINDINGS: Left rib cage: There is no obvious left rib fracture. No rib lesion. X-ray: Heart size normal. Mediastinum is not widened. Lungs are clear. No pleural effusion. No pn eumothorax IMPRESSION: No obvious left rib fracture. No pneumothorax nor lung contusion. DATA REPOSITORY: RADIATION DOSE DELIVERED:
--- NOTE | 2021-12-18 13:45 | DI.RAD_ITS ---
Exam(s) XR SHOULDER LT COMPLETE 2+V EXAM: XR SHOULDER LT COMPLETE 2+V CLINICAL HISTORY: fall onto ground, r/o fx. TECHNIQUE: 2D digital imaging was performed. COMPARISON: No exams were available for comparison FINDINGS: No evidence of fracture or dislocation. No abnormal soft tissue calcifications. Subacromial space a ppears unremarkable. AC joint and ipsilateral clavicle unremarkable. Bone density is normal. IMPRESSION: No fracture DATA REPOSITORY: RADIATION DOSE DELIVERED:
--- NOTE | 2021-12-18 13:45 | DI.RAD_ITS ---
Exam(s) XR ELBOW LT COMPLETE EXAM: XR ELBOW LT COMPLETE CLINICAL HISTORY: fall onto elbow, tender olecranon, r/o fx. TECHNIQUE: 2D digital imaging was performed. COMPARISON: No exams were available for comparison FINDINGS: No evidence of fracture or joint effusion. No swelling of the olecranon bursa. Radial head unremark able. Epicondyles unremarkable. Bone density normal IMPRESSION: No fracture. DATA REPOSITORY: RADIATION DOSE DELIVERED:
[2021-12-18] MEDS: Acetaminophen 500 MG TAB 1000 MG PO (13:59)
[2021-12-18 15:26] VITALS: PULSE 86; O2SAT 99
[2022-02-02 16:59] LABS: HCT 44.5 % (40.0-50.0); HGB 14.7 g/dL (13.5-17.5); MCH 31.5 pg (27.0-33.0); MCV 95.5 fL (80-95); MPV 10.1 fL (8.0-11.0); Platelet Count 317 10^3/uL (130-400); RBC 4.66 10^6/uL (4.36-5.78); RDW 12.2 % (11.8-14.1); WBC 5.88 10^3/uL (4.4-10.8)
[2022-02-02 17:34] LABS: BUN 19 mg/dL (7-18); CREATININE 1.3 mg/dL (0.70-1.30); Calcium 8.9 mg/dL (8.5-10.1); Chloride 105 mmol/L (98-107); Estimated GFR 57.31 (mL/min/1.73m2); Glucose 77 mg/dL (74-106); Potassium 4.5 mmol/L (3.5-5.1); Sodium 140 mmol/L (136-145)
[2022-02-03 18:50] LABS: PSA, Screening 0.9 ng/mL (<=3.5)
== END 2022-02-02 11:07 | disposition home or self-care (01) ==
LOC: NCHCN 02-02 11:06
PROVIDERS: Emergency Provider Physician Assistant; PCP Family Medicine; Visit Provider Family Medicine
DX: S40.012A Contusion of left shoulder, initial encounter (principal); S50.02XA Contusion of left elbow, initial encounter; S20.212A Contusion of left front wall of thorax, initial encounter; W01.0XXA Fall on same level from slipping, tripping and stumbling without subsequent striking against object, initial encounter
CPT/HCPCS: 80048; 84153; 85027; 99284; 71046; 71100; 73030; 73080; 99283

== ENCOUNTER → 2022-04-03 00:07 | Outpatient (CLI) | payer MEDICAID, SELFPAY ==
--- NOTE | 2022-04-03 10:23 | DI.CTLCSR_ITS ---
Exam(s) CT CHEST LUNG CANCER SCREEN EXAM: CT CHEST LUNG CANCER SCREEN CLINICAL HISTORY: SCREENING,ACTIVE SMOKER,[id number] HISTORY, PREVENTIVE HEALTH CARE,Z00.00 TECHNIQUE: Imaging Protocol: Axial computed tomography images with coronal and sagittal reformatted images were created and reviewed COMPARISON: CR CHEST 2 VIEWS PA,LAT from 10/14/2015 CR XR RIBS LT W PA LAT CHEST from 12/18/2021 FINDINGS: Tracheobronchial tree: Patent where visualized. Pulmonary parenchyma: No consolidation or dominant measurable mass. Mild centrilobular emphysematous changes are present. Lung Nodules: There is a triangular shaped 3 mm nodule contiguous with the lateral aspect of the righ t major fissure. There is a 3 mm triangular shaped nodule contiguous with the right minor fissure. There is a 3 mm nodule in the lateral aspect of the right middle lobe. There is a 2 mm nodule in the left upper lobe. There is a 3 mm nodule in the left lower lobe. Mediastinum and Naty: No dominant adenopathy or fluid collection. The esophagus is unremarkable. Thyroid gland: Unremarkable. Lymph nodes: Unremarkable. Pleura: No effusion or pneumothorax. Heart: The heart is not dilated. Coronary artery calcifications are present. No pericardial effusion . Aorta: Thoracic aorta non-dilated.Atherosclerosis is present. Upper abdomen: Unremarkable. Soft Tissues: Unremarkable. Bones: Within normal limits. There is an old healed left rib fracture. There is an unchanged area of sclerosis involving the posterolateral aspect of the left 7th rib. This is unchanged dating back to 2014. This is likely benign. IMPRESSION: 1. Bilateral pulmonary nodules. The largest measures 3 mm. 2. Mild centrilobular emphysema. Lung RADS Cat 2 - Benign Appearance / Behavior: Nodules with a very low likelihood of becoming a clin ically active cancer due to size or lack of growth Lung-RADS 1.0 CATEGORIES: Category 0 - Prior chest CT exam(s) being located for comparison. Category 1 - Annual screening in 12 months. No nodules or definitely benign nodules. Category 2 - Annual screening in 12 months. Benign appearance. Nodules with low likelihood of becomin g active cancer. Category 3 - 6-month follow-up. Probably benign. Short-term follow-up suggested. Nodules with low lik elihood of becoming active cancer. Category 4A - 3-month follow-up and CT/PET if >8 mm in size. Suspicious finding. Findings which requi re additional testing. Category 4B - Findings which require additional testing and tissue sampling. Suspicious finding. Category 4X - Category 3 or 4 nodules with additional features or imaging findings that increases the suspicion of malignancy. Modifier S- Potentially clinically significant finding. (Non lung cancer) RADIATION DOSE DELIVERED: 79.66mGy.cm Total DLP 1.84mGyCTDIvol 79.66mGy.cm Total DLP 1.84mGy CTDIvol DATA REPOSITORY: All CT scans at this facility are submitted to the National Radiology Data Registry (NRDR) Dose Index Registry (DIR) with the [employer] (ACR). RADIATION OPTIMIZATION: All CT scans at this facility use at least one of these dose optimization te chniques: automated exposure control; mA and/or kV adjustment per patient size (includes targeted exa ms where dose is matched to clinical indication); or iterative reconstruction.
== END ==
PROVIDERS: PCP Family Medicine; Visit Provider Family Medicine
DX: Z12.2 Encounter for screening for malignant neoplasm of respiratory organs (principal); F17.210 Nicotine dependence, cigarettes, uncomplicated; R91.8 Other nonspecific abnormal finding of lung field; J43.2 Centrilobular emphysema
CPT/HCPCS: 71271

== ENCOUNTER 2024-04-12 13:10 | Emergency (ER) | payer MEDICAID, SELFPAY ==
[2024-04-12 13:13] VITALS: BP 104/69; PULSE 89; RESP 10; TEMP 36.9; O2SAT 97
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
[2024-04-12] MEDS: Ibuprofen 800 MG TAB PO (13:38)
[2024-04-12] MEDS: Acetaminophen 500 MG TAB 1000 MG PO (13:38)
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
--- NOTE | 2024-04-12 14:43 | DI.CT_ITS ---
Exam(s) CT CHEST WO EXAM: CT CHEST WO CLINICAL HISTORY: r/o R sternoclav dislocation/ sternal fx. TECHNIQUE: Imaging protocol: Axial computed tomography images were obtained and coronal and sagittal reformatted images were created and reviewed. CONTRAST MATERIAL: Noncontrast COMPARISON: CT CT CHEST LUNG CANCER SCREEN from 04/03/2022 CR XR STERNUM from 04/12/2024 CR XR CLAVICLE RT from 04/12/2024 CR XR CHEST 2V PA LATERAL from 04/12/2024 FINDINGS: Pulmonary parenchyma: No consolidation. No suspicious nodules. Emphysema: Emphysematous changes are noted in the upper lobes. Tracheobronchial tree: No mucous plugging. No bronchiectasis . Interstitial changes: None. Pleura: No effusion or pneumothorax. Heart: The heart is not dilated. The coronary arteries show mild calcifications. Aorta: Thoracic aorta non-dilated. No significant atherosclerotic changes. Lymph nodes: No enlarged lymph nodes. Bones: Degenerative changes are seen. No evidence of compression fracture. The sternum and visua lized portions of the clavicles as well as ribs appear intact. Upper abdomen: Unremarkable. Soft tissues: Unremarkable. IMPRESSION: No acute abnormality. RADIATION DOSE DELIVERED: 286.06mGy.cm Total DLP 286.06mGy.cm Total DLP DATA REPOSITORY: All CT scans at this facility are submitted to the National Radiology Data Registry (NRDR) Dose Index Registry (DIR) with the [employer] (ACR). RADIATION OPTIMIZATION: All CT scans at this facility use at least one of these dose optimization te chniques: automated exposure control; mA and/or kV adjustment per patient size (includes targeted exa ms where dose is matched to clinical indication); or iterative reconstruction.
== END 2024-04-12 15:31 | disposition home or self-care (01) ==
LOC: ER 15:32
PROVIDERS: Emergency Provider Student in an Organized Health Care Education/Training Program; PCP Family Medicine
DX: S40.011A Contusion of right shoulder, initial encounter (principal); R07.89 Other chest pain; V18.2XXA Unspecified pedal cyclist injured in noncollision transport accident in nontraffic accident, initial encounter
CPT/HCPCS: 71250; 99284; 71046; 71120; 73000; 99283

== ENCOUNTER 2024-07-06 15:59 | Outpatient (REF) | payer MEDICAID, SELFPAY ==
[2024-07-06 15:55] LABS: Source Nasal/Nares
--- OUTSIDE RECORDS SUMMARY | 2024-07-06 16:01 | XMS_ITS | Encounter Summary ---
Author Organization [facility] Address [address] [place] [address] Care Team Providers Care Director Talent Management Name Role Phone Yamilka Jones CLERICAL WAREHOUSEMAN Primary Care Provider [phone] Encounter Details Date Type Department Care Team (Late st Contact Info) Description 12/05/2020 Lab Requisition [facility] Pathology & Laboratory Medicine - [facility] [address] [place] [address] Outr Resulting Lab, Provider Social History Tobacco Use Types Packs/Day Years Used Date Smoking Tobacco: Never Assessed Interpersonal Safety Answer Date Record ed Physically Hurt Never 05/26/2020 Verbally Threaten Not on file 05/26/2020 Sex and Gender Information Value Date Recorded Sex Assigned at Not on file Gender Identity Not on file Sexual Orientation Not on file documented as of this encounter Plan of Treatment Not on file documented as of this encounter Procedures Procedure Name Priority Date/Time Associated Diagnosis Comments DO NOT ORDER STANDALONE - CHARLIE COVID TESTING Today 12/04/2020 15:00 EST COVID-19 TESTING Routine 12/04/2020 15:0 0 EST documented in this encounter Results * DO NOT ORDER STANDALONE - CHARLIE COVID TESTING (12/04/2020 15:00 EST) COVID-19 rt-PCR Result Not Detected Not Detected 12/06/2020 16:40 EST [facility] Comment: This test has not been FDA cleared or approved. This test has been authorized by FDA under an EUA for use by authorized laboratories. ??This test has been authorized only for the detection of nucleic acid from SARS-CoV-2, not for any other viruses or pathogens. ??This test is only authorized for the duration of the declaration that circumstances exist justifying the authorization of emergency use of in vitro diagnostic tests for detection and/or diagnosis of COVID-19 under Section 564(b)(1) of the Act, 21 U.S.C. Section 360bbb-3(b)(1), unless the authorization is terminated or revoked sooner. ??Factsheets for healthcare providers: ??https://www.fda.gov/media/312684/download Factsheets for patients: https://www.fda.gov/media/537459/download Negative results do not preclude infection with SARS-CoV-2 virus, and should not be the sole basis of a patient management decision. Swab ENTIRE NASOPHARYNX / Unknown 12/04/2020 15:00 EST 12/05/2020 17:09 EST Provider Outr Resulting Lab MICROBIOLOGY - GENERAL ORDERABLES Performing Organization Address City/State/[facility] Co de Phone Number [facility] [address] [place] [address] * COVID-19 TESTING (12/04/2020 15:00 EST) COVID-19 rt-PCR Result Not Detected Not Detected 12/06/2020 17:02 EST [facility] Comment: This test has not been FDA cleared or approved. This test has been authorized by FDA under an EUA for use by authorized laboratories. ??This test has been authorized only for the detection of nucleic acid from SARS-CoV-2, not for any other viruses or pathogens. ??This test is only authorized for the duration of the declaration that circumstances exist justifying the authorization of emergency use of in vitro diagnostic tests for detection and/or diagnosis of COVID-19 under Section 564(b)(1) of the Act, 21 U.S.C. Section 360bbb-3(b)(1), unless the authorization is terminated or revoked sooner. ??Factsheets for healthcare providers: ??https://www.fda.gov/media/531747/download Factsheets for patients: https://www.fda.gov/media/906183/download Negative results do not preclude infection with SARS-CoV-2 virus, and should not be the sole basis of a patient management decision. Performing Lab [facility] 12/06/2020 17:02 EST [facility] Swab 12/04/2020 15:0 0 EST 12/05/2020 17:09 EST Provider Outr Resulting Lab MICROBIOLOGY - GENERAL ORDERABLES [facility] [address] LABORATORY [address] [place] [address] documented in this encounter Visit Diagnoses Not on filedocumented in this encounter Care Teams Director Talent Management Relationship Specialty Start Date End Date Yamilka Jones NP [address] [place] [phone] PCP - General 01/23/14 documented as of this encounter
--- OUTSIDE RECORDS SUMMARY | 2024-07-06 16:01 | XMS_ITS | Encounter Summary ---
Author Organization [facility] Address [address] [place] [address] Care Team Providers Care Retail Store Manager Name Role Phone Unknown, Provider Primary Care Provider Encounter Details Date Type Department Care Team (Late st Contact Info) Description 01/22/2014 Results Only [facility] [phone] Onel Sampson, DO [address] [place] [address] [address] [place], [place] [id number] Social History Tobacco Use Types Packs/Day Years Used Date Smoking Tobacco: Never Assessed Sex and Gender Information Value Date Recorded Sex Assigned at Not on file Gender Identity Not on file Sexual Orientation Not on file documented as of this encounter Plan of Treatment Not on file documented as of this encounter Procedures Procedure Name Priority Date/Time Associated Diagnosis Comments SURGICAL PATHOLOGY Routine 01/22/2014 15 :40 EDT documented in this encounter Results * SURGICAL PATHOLOGY (01/22/2014 15:40 EDT) Pathology Report: SURGICAL PATHOLOGY REPORT Reports generated via electronic interface contain original data; however they are lacking the format of the original report. Caution should be taken when reading/interpreti ng unformatted reports. Name: ? FLOYD POMPA ? Accession #: ? [id number] ? : ? 1965 (Age: 48) ??M ? Collect Date: ? 01/22/2014 ? Location: ? [facility] ? Receive Date: ? 01/22/2014 ? Provider: ONEL SAMPSON DO Copy to: LADONNA ANSARI INDUSTRIAL ENGINEERING MANAGER ? Final Pathologic Diagnosis: SKIN OF FACE, LEFT, EXCISION: - Features consistent with ruptured cyst. ??See comment. Comment: Present are fragments of tissue. ??The tissue shows fibrosis with marked inflammation, including foreign body-type giant cells. ??Associated with the inflammatory infiltrate are fragments of liberated orthokeratin, consistent with a ruptured cyst. (Dr. Quesada)/[facility] Document reviewed and electronically signed by: MICHELLE QUESADA MD Report ??Date: 01/23/2014 12:53 By the signature above, the attending physician certifies that he/she has personally conducted a gross and/or microscopic examination of the described specimens and rendered or confirmed the above diagnosis. Specimen(s) Received: Left facial mass Clinical History: Left facial cyst Gross Description: ? Received in formalin labelled with proper patient identification (initials M, C) and left facial mass are three pink-ramos focally colvin-yellow focally brown tissue fragments (0.4 x 0.4 x 0.2 cm to 0.8 x 0.5 x 0.3 cm). Entirely submitted in 1. Linda Choi 01/22/2014 04:02 PM End of Report [facility] 01/22/2014 15:4 0 EDT 01/22/2014 15:40 EDT Onel Sampson DO PATHOLOGY ORDER JUAN PABLO [facility] TREJO [address] [place] [address] documented in this encounter Visit Diagnoses Not on filedocumented in this encounter Care Teams Retail Store Manager Relationship Specialty Start Date End Date Unknown, Provider, PCP - General 01/22/14 01/22/14 documented as of this encounter
--- OUTSIDE RECORDS SUMMARY | 2024-07-06 16:01 | XMS_ITS | Referral Summary ---
Author Organization [facility] Address [address] [place] [address] Care Team Providers Care Design Lead Name Role Phone Yamilka Jones SOLE SPLITTER Primary Care Provider Social History Tobacco Use Types Packs/Day Years Used Date Smoking Tobacco: Never Assessed Interpersonal Safety Answer Date Record ed Physically Hurt Never 05/26/2020 Verbally Threaten Not on file 05/26/2020 Sex and Gender Information Value Date Recorded Sex Assigned at Not on file Gender Identity Not on file Sexual Orientation Not on file Plan of Treatment Not on file Care Teams Design Lead Relationship Specialty Start Date End Date Yamilka Jones, [place] [address] [phone] PCP - General 01/23/14
--- OUTSIDE RECORDS SUMMARY | 2024-07-06 16:01 | XMS_ITS | Encounter Summary ---
Author Organization [facility] [place] [address] Care Team Providers Care Wax Ball Knock Out Worker Name Role Phone Ella Alex RAJINDER Primary Care Provider [phone] Encounter Details Date Type Department Care Team (Late st Contact Info) Description 02/25/2016 - 02/25/2016 11:59 PM EDT Hospital Encounter [place] [phone] Dr Faisal Temporary Pain Discharge Disposition: Home Social History Tobacco Use Types Packs/Day Years Used Date Smoking Tobacco: Never Assessed Sex and Gender Information Value Date Recorded Sex Assigned at Not on file Gender Identity Not on file Sexual Orientation Not on file documented as of this encounter Medications at Time of Discharge Medication Sig Dispensed Refills Start Date End Date cyclobenzaprine (FLEXERIL) 10 mg Tablet Take 10 mg by mouth nightly. 0 02/19/2016 07/20/2017 PROAIR HFA 90 mcg/actuation HFA Aerosol Inhaler Inhale 2 puffs into the lungs daily as needed. 0 01/17/2016 07/20/2017 predniSONE (DELTASONE) 10 mg Tablet Take 10 mg by mouth. 0 02/07/2016 017 HYDROcodone-acetaminophen (VICODIN) 5-300 mg Tablet Take 1 tablet by mouth every 6 hours as needed. 0 02/19/2016 07/20/2017 documented as of this encounter Plan of Treatment Not on file documented as of this encounter Procedures Procedure Name Priority Date/Time Associated Diagnosis Comments FILM LIBRARY STORAGE ONLY MR SPINE Routine 02/25/2016 12:00 AM EDT Pain documented in this encounter Results * Film Library- Storage only MR Spine (02/25/2016 12:00 AM EDT) Narrative RAD - 02/28/2016 11:33 AM EDT This exam is for storage only and is auto-finalizing. Dr Curran [facility] IM FILM LIBRARY ORD ERABLES [place], [place] documented in this encounter Visit Diagnoses Diagnosis Pain Generalized pain documented in this encounter Care Teams Wax Ball Knock Out Worker Relationship Specialty Start Date End Date Ella Alex APRN PCP - General Family Medicine 02/24/16 12/20/16 documented as of this encounter
--- OUTSIDE RECORDS SUMMARY | 2024-07-06 16:01 | XMS_ITS | Encounter Summary ---
Author Organization [facility] Address [address] [place] [address] Care Team Providers Care Tapper Shank Name Role Phone Yamilka Jones WINDOWS DESKTOP SUPPORT Primary Care Provider [phone] Encounter Details Date Type Department Care Team (Late st Contact Info) Description 10/11/2020 Lab Requisition [facility] Pathology & Laboratory Medicine - [address] [address] Outr Resulting Lab, Provider Social History Tobacco [...] Procedure Name Priority Date/Time Associated Diagnosis Comments HEPATITIS B SURFACE ANTIGEN Routine 10/10/2020 16:30 EST documented in this encounter Results * HEPATITIS B SURFACE ANTIGEN (10/10/2020 16:30 EST) Hep B Surface Ag Negative Negative 10/14/2020 9:[address] [facility] Blood VENOUS BLOOD / Unknown 10/10/2020 16:30 EST 10/11/2020 17:22 EST Provider Outr Resulting Lab CHEMISTRY & BLOOD GAS ORDERABLES [facility] [address] [place] [address] documented in this encounter Visit Diagnoses Not on filedocumented in this encounter Care Teams Tapper Shank Relationship Specialty Start Date End Date Yamilka Jones, DOT [address] [place] [phone] PCP - General 01/23/14 documented as of this encounter
--- OUTSIDE RECORDS SUMMARY | 2024-07-06 16:01 | XMS_ITS | Encounter Summary ---
Author Organization [facility] Address [address] [place] [address] Care Team Providers Care Tire Design Engineer Name Role Phone Yamilka Jones WELDING MACHINE OPERATOR ELECTROSLAG Primary Care Provider [phone] Encounter Details Date Type Department Care Team (Late st Contact Info) Description 02/03/2022 Lab Requisition [facility] Pathology & Laboratory Medicine - [address] [address] Outr Resulting Lab, Provider Social History Tobacco [...] Procedure Name Priority Date/Time Associated Diagnosis Comments PSA TOTAL, DIAGNOSTIC Routine 02/02/2022 10:50 EDT documented in this encounter Results * PSA TOTAL, DIAGNOSTIC (02/02/2022 10:50 EDT) PSA 0.9 <=3.5 ng/mL 02/03/2022 18:45 EDT [facility] Blood VENOUS BLOOD / Unknown 02/02/2022 10:50 EDT 02/03/2022 16:48 EDT Narrative [facility] - 02/03/2022 18:45 EDT NOTE: Serum PSA concentration should not be interpreted as absolute evidence for the presence or absence of malignant disease. Assayed on Siemens ADVIA Centaur XPT using chemiluminescent technology.??Values obtained by using different assay methods cannot be used interchangeably. Provider Outr Resulting Lab CHEMISTRY & BLOOD GAS ORDERABLES [facility] [address] [place] [address] documented in this encounter Visit Diagnoses Not on filedocumented in this encounter Care Teams Tire Design Engineer Relationship Specialty Start Date End Date Yamilka Jones NP [address] [place] [phone] PCP - General 01/23/14 documented as of this encounter
--- OUTSIDE RECORDS SUMMARY | 2024-07-06 16:01 | XMS_ITS | Encounter Summary ---
Author Organization [facility] Address [address] [place] [address] Care Team Providers Care Coke Worker Name Role Phone Unknown, Provider Primary Care Provider [phone] Encounter Details Date Type Department Care Team (Latest Contact Info) Description 01/22/2014 17:39 EDT - 01/22/2014 23:59 EDT Hospital Encounter [address] [address] Unknown, Provider, Discharge Disposition: Home or Self Care Social History Tobacco Use Types Packs/Day Years Used Date Smoking Tobacco: Never Assessed Sex and Gender Information Value Date Recorded Sex Assigned at Not on file Gender Identity Not on file Sexual Orientation Not on file documented as of this encounter Discharge Disposition Disposition Code Departure Means Destination Home or Self [facility] documented in this encounter Plan of Treatment Not on file documented as of this encounter Visit Diagnoses Not on filedocumented in this encounter Care Teams Coke Worker Relationship Specialty Start Date End Date Unknown, Provider, PCP - General 01/22/14 01/22/14 documented as of this encounter
--- OUTSIDE RECORDS SUMMARY | 2024-07-06 16:01 | XMS_ITS | Encounter Summary ---
Author Organization [facility] Address [facility] [place] [address] Care Team Providers Care Aircraft Launch And Recovery Technician Name Role Phone Nicky Dave APRN Primary Care Provider [phone] Reason for Visit * Reason Comments Back Pain Bilateral Hip Pain * Consultation (Routine) - Closed Specialty Diagnoses / Procedures Referred By Contac t Referred To Contact Orthopaedics Diagnoses Low back pain/ ask about imaging Nicky Dave APRN [address] [place] [address] [facility] [address] [place] [address] Referral ID Status Reason Start Date Expiration Date V isits Requested Visits Authorized [id number] Closed Consult, Test & Treat Connection [facility] 07/01/2017 07/01/2018 1 1 Encounter Details Date Type Department Care Team (Late st Contact Info) Description 07/20/2017 1:00 PM EDT Office [place] [address] Ephraim Titus PA [facility] [place] [address] Chronic left-sided low back pain without sciatica Social History Tobacco Use Types Packs/Day Years Used Date Smoking Tobacco: Every Day Cigarettes Smokeless Tobacco: Never Comments:on nicoderm smokes 5 cigarettes a day Sex and Gender Information Value Date Recorded Sex Assigned at Not on file Gender Identity Not on file Sexual Orientation Not on file documented as of this encounter Last Filed Vital Signs Vital Sign Reading Time Taken Comments Blood Pressure 105/72 07/20/2017 12:50 PM EDT Pulse 85 07/20/2017 12:50 PM EDT Temperature - - Respiratory Rate - - Oxygen Saturation - - Inhaled Oxygen Concentration - - Weight 61.2 kg (135 lb) 07/20/2017 12:50 PM EDT Height 177.8 cm (5' 10) 07/20/2017 12:50 PM EDT Body Mass Index 19.37 07/20/2017 12:50 PM EDT documented in this encounter Progress Notes * Ephraim Titus PA - 07/20/2017 1:00 PM EDT Subjective: Sowmya Kirkland is a 51-year-old gentleman seen today chief complaint of acute on chronic back pain, left worse than right. He reports prior history of lifting injury several years ago which she believes led to his initial complaints. He mentions having back pain off and on, which generally improves spontaneously. Over the past few months however, this has been having on with him much longer, and he finds this more persistent. The pain is localized over the bilateral lumbosacral regions, left first right. He does not report radiation of pain, numbness, weakness into either lowerextremity. He finds symptoms improved with recliner, standing, walking, there is otherwise worsening with prolonged sitting and driving more than 20-40 minutes. He has not really been doing physical treatments for this recently. He mentions recent prescription of muscle relaxants cyclobenzaprine with some good improvement. He also mentions proceeding to a Toradol injections in the emergency department which had provided him several hours of relief. He does not report prior spine surgery. He does have prior history of several knee arthroscopic surgeries. He continues to smoke one half pack per day. Denies alcohol use. 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 He has otherwise continued working as of late. Objective: This is a pleasant thin 51-year-old gentleman appears his stated age and is no acute distress. His gait is normal. He is able to toe walk and heel walk without weakness. He stands with straight spine and level shoulders and pelvis. He is tender to palpation over the left sided lumbar region, otherwise nontender over the sciatic notches. Lumbar flexion to about 70??, lumbar extension only to about 10?? with increasing back pain worse at endrange extension. Motor and sensory examination is entirely normal. Reflexes are symmetric and diminished +1 at both knees and both ankles. Negative straight leg raising bilaterally. There is no clonus or Babinski. Painless hip range of motion. Palpable peripheral pulses. MRI of the lumbar spine as well as plain x-rays from 2016 was reviewed today. Overall there is no significant scoliosis or spondylolisthesis. There are findings of right paracentral herniated disc, right L4-L5, and a small right paracentral disc protrusion right L5-S1. There is otherwise no significant left- sided neural impingement noted. Disc and facet degenerative changes are noted from L3-L4 to L5-S1. Assessment/plan: Sowmya Kirkland is a 51-year-old gentleman seen today for chief complaint of acute on chronic back pain, primarily left-sided. He does not have concerning evidence of lower extremity involvement to suggest lumbosacral radiculopathy. His prior imaging from 2016 shows evidence of herniated disc on the right side but he fortunately does not have concomitant right leg pain, numbness, weakness with this. We discussed that no surgical treatment is indicated as he is not primarily having lumbar radiculopathy. His overall symptoms are most consistent with mechanical left-sided backpain. There appears to be facetogenic component with this given reproduction of his left-sided pain on extension. We discussed options for this such as medications, physical therapy, and lastly lumbar medial branch blocks and radiofrequency ablation directed towards the left side. I advised him that given the rather recent onset of his symptoms over the past few months, that it may continue to improve as long as he maintains activity. We decided to hold off on any physical therapy for now, and I will insteadhappen proceed further with medication management. He has given another refill cyclobenzaprine 10 mg to be used at bedtime for her nighttime pain. He was also given a prescription for an anti-inflammatory medication which will be meloxicam 15 mg once per day. He was advised to avoid other anti-inflammatory medications with this. I discussed the importance of smoking cessation, and the constipation of this to his chronic pain and further spinal degeneration. He expressed understanding but did not really show much interest in smoke sensation at the time of our appointment. We will follow up on an as-needed basis. Spine center business cards are provided. documented in this encounter Plan of Treatment Not on file documented as of this encounter Visit Diagnoses Diagnosis Chronic left-sided low back pain without sciatica documented in this encounter Care Teams Aircraft Launch And Recovery Technician Relationship Specialty Start Date End Date Nicky Dave APRN [address] [place] [address] PCP - General Family Medicine 07/01/17 documented as of this encounter
--- OUTSIDE RECORDS SUMMARY | 2024-07-06 16:01 | XMS_ITS | Encounter Summary ---
Author Organization [facility] Address [address] [place] [address] Care Team Providers Care Health Support Specialist Name Role Phone Yamilka Jones AUTOMOBILE BODY CUSTOMIZER Primary Care Provider [phone] Encounter Details Date Type Department Care Team (Late st Contact Info) Description 08/19/2020 Lab Requisition [facility] Pathology & Laboratory Medicine - [facility] [address] [place] [address] Outr Resulting Lab, Provider Social History Tobacco [...] ORDER STANDALONE - CHARLIE COVID TESTING Today 08/18/2020 15:54 EDT COVID-19 TESTING Routine 08/18/2020 15:5 4 EDT documented in this encounter Results * DO NOT ORDER STANDALONE - CHARLIE COVID TESTING (08/18/2020 15:54 EDT) COVID-19 rt-PCR Result Not Detected Not Detected 08/20/2020 14:32 EDT [facility] Comment: This test has not [...] or revoked sooner. ??Factsheets for healthcare providers: ??https://www.fda.gov/media/576591/download Factsheets for patients: https://www.fda.gov/media/092390/download Negative results do not preclude infection with SARS-CoV-2 virus, and should not be the sole basis of a patient management decision. Swab ENTIRE NASOPHARYNX / Unknown 08/18/2020 15:54 EDT 08/19/2020 16:00 EDT Provider Outr Resulting Lab MICROBIOLOGY - GENERAL ORDERABLES Performing Organization Address City/State/[facility] Co de Phone Number [facility] [address] [place] [address] * COVID-19 TESTING (08/18/2020 15:54 EDT) COVID-19 rt-PCR Result Not Detected Not Detected 08/20/2020 15:02 EDT [facility] Comment: This test has not [...] or revoked sooner. ??Factsheets for healthcare providers: ??https://www.fda.gov/media/535969/download Factsheets for patients: https://www.fda.gov/media/451420/download Negative results do not preclude infection with SARS-CoV-2 virus, and should not be the sole basis of a patient management decision. Performing Lab [facility] 08/20/2020 15:02 EDT [facility] Swab 08/18/2020 15:5 4 EDT 08/19/2020 16:00 EDT Provider Outr Resulting Lab MICROBIOLOGY - GENERAL ORDERABLES [facility] [address] LAB[address]ATORY [address] [place] [address] documented in this encounter Visit Diagnoses Not on filedocumented in this encounter Care Teams Health Support Specialist Relationship Specialty Start Date End Date Yamilka Jones NP [address] [place] [phone] PCP - General 01/23/14 documented as of this encounter
--- OUTSIDE RECORDS SUMMARY | 2024-07-06 16:01 | XMS_ITS | Encounter Summary ---
Author Organization [facility] Address [address] [place] [address] Care Team Providers Care Field Marketing Coordinator Name Role Phone Yamilka Jones WEAVING PROFESSOR Primary Care Provider Encounter Details Date Type Department Care Team (Late st Contact Info) Description 10/11/2020 Lab Requisition [facility] Pathology & Laboratory Medicine - [address] [id number] Outr Resulting Lab, Provider Social History Tobacco [...] Procedure Name Priority Date/Time Associated Diagnosis Comments HIV 1/2 ANTIGEN AND ANTIBODY, 4TH GENERATION Routine 10/10/2020 16:30 EST documented in this encounter Results * HIV 1/2 ANTIGEN AND ANTIBODY, 4TH GENERATION (10/10/2020 16:30 EST) HIV 1 and 2 Antibody/p24 Antigen, 4th Generation Negative Negative 10/12/2020 10:48 EST [facility] Comment: If acute HIV-1 infection is suspected in a high risk ??patient, submit plasma specimen for HIV-1 RNA quantitation test. Fourth Generation assay performed on the Siemens S[employer]Z [employer]. Blood VENOUS BLOOD / Unknown 10/10/2020 16:30 EST 10/11/2020 17:22 EST Provider Outr Resulting Lab IMMUNOLOGY A ND SEROLOGY ORDERABLES [facility] [address] [place] [address] documented in this encounter Visit Diagnoses Not on filedocumented in this encounter Care Teams Field Marketing Coordinator Relationship Specialty Start Date End Date Yamilka Jnoes, WEAVING PROFESSOR [address] [place] [place] [phone] PCP - General 01/23/14 documented as of this encounter
--- OUTSIDE RECORDS SUMMARY | 2024-07-06 16:01 | XMS_ITS | Encounter Summary ---
Author Organization [facility] Address [facility] [place] [address] Care Team Providers Care Cad Manager Name Role Phone Ella Alex APRN Primary Care Provider [phone] Reason for Visit * Reason Comments Low Back Pain buttock Right Leg Pain Right Hip Pain * Consultation (Routine) - Closed Specialty Diagnoses / Procedures Referred By Contac t Referred To Contact Orthopaedics Diagnoses lower back pain with onset about a month ago without a clear triggering event. Radiating pain into R buttock, lateral R thigh to knee with occasional tingling into the 4th5th toes R foot Ella Alex APRN [address] [place] [address] [phone] Referral ID Status Reason Start Date Expiration Date V isits Requested Visits Authorized [id number] Closed Consult, Test & Treat Connection Center 02/25/2016 02/24/2017 1 1 Encounter Details Date Type Department Care Team (Latest Contact Info) Description 03/03/2016 8:00 AM EDT Office [place] [address] Victor Hugo Almeida MD [facility] [place] [address] Herniation of lumbar intervertebral disc with radiculopathy Social History Tobacco Use Types Packs/Day Years Used Date Smoking Tobacco: Every Day Cigarettes Smokeless Tobacco: Never Comments:on estelle smokes 5 cigarettes a day Sex and Gender Information Value Date Recorded Sex Assigned at Not on file Gender Identity Not on file Sexual Orientation Not on file documented as of this encounter Last Filed Vital Signs Vital Sign Reading Time Taken Comments Blood Pressure 119/74 03/03/2016 7:54 AM EDT Pulse - - Temperature - - Respiratory Rate - - Oxygen Saturation - - Inhaled Oxygen Concentration - - Weight 61.2 kg (135 lb) 03/03/2016 7:54 AM EDT Height 177.8 cm (5' 10) 03/03/2016 7:54 AM EDT Body Mass Index 19.37 03/03/2016 7:54 AM EDT documented in this encounter Progress Notes * Victor Hugo Almeida MD - 03/03/2016 8:14 AM EDT Images from the original note were not included. Mr. Kirkland is a 50-year-old gentleman seen today in the Spine Center consultation from Ella Alex. This gentleman is seen and evaluated for about a 2-month history of pain in the back, right buttock, anterolateral thigh to the proximal right leg. He said this began with a spontaneous onset when he awoke with the back pain about 2 months ago. The left leg is asymptomatic. Proximal pain is worse than the leg pain. In the trimming assembler he has pain in the right groin. He has had one session of physical therapy. He is on Flexeril. He has had a shot of Toradol in the local emergency department. He does have significant pain at night. REVIEW OF SYSTEMS: Is negative for GI, , or constitutional symptoms. 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 ALLERGIES: Include; ibuprofen and IV dye of some kind. Height is 5 feet 10 inch, weight 135 pounds, body mass index 19.4. He continues to smoke about a 1/4 pack of cigarettes per day. This is a pleasant, thin gentleman who is unable to sit because of his pain. Otherwise he moves comfortably about the office. His gait, toe walking, and heel walking are all normal. On inspection from the back he has a level pelvis and a straight spine. He has pain on the low back and right sciatic notch. He has no spasm or scoliosis. Skin color and temperature are normal. His lower extremity neurologic exam demonstrates an absent reflex at the right knee, 1 at the left knee, and 1 at the ankles. His distal motor exam and sensory exam are normal. The straight leg raise test reproduces his pain on the right anterior thigh to the proximal leg. His calf musculature is soft and nontender bilaterally without edema or atrophy. Lumbar MRI dated 02/25/16 from [facility] demonstrates an extruded disc herniation with cephalad migration at the L4-L5 level, right side. This is consistent with his symptoms. This could just catch the 4th nerve root medially and inferior to the pedicle. It also has the potential of impinging upon the 5th nerve root. He also has a small disc bulge on the right at L5-S1 which would impinge the S1 nerve root which he is not symptomatic from, I believe. IMPRESSION: A 2-month history of right leg pain in the L4, L5 distribution, right side from an extruded herniated disc. I reviewed this with the patient, reviewed the MRI findings as well as the natural history of disc herniation and medical and surgical options. He would like to continue with his physical therapy. If his symptoms worsen or do not improve I am happy to see him back to discuss surgery for an L4-L5 disc herniation and disc excision. He did inquire about medications. I referred him back to his primary care. 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
--- OUTSIDE RECORDS SUMMARY | 2024-07-06 16:01 | XMS_ITS | Encounter Summary ---
Author Organization [facility] Address [facility] [place] [address] Care Team Providers Care Phone Circuit Operator Name Role Phone Unavailable Primary Care Provider Unavailabl e Encounter Details Date Type Department Care Team (Late st Contact Info) Description 06/24/2012 - 06/24/2012 11:59 PM EDT Hospital [facility] [place] [address] [place] Faisal Temporary Pain Discharge Disposition: Home [...] Associated Diagnosis Comments FILM LIBRARY STORAGE ONLY DX SPINE Routine 06/24/2012 12:00 AM EDT Pain documented in this encounter Results * Film Library- Storage only DX Spine (06/24/2012 12:00 AM EDT) Narrative DELMA - 02/28/2016 11:33 AM EDT This exam is for storage only and is auto-finalizing. Dr Magdy Malone IMG FILM LIBRARY ORD ERABLES [place], [place] documented in this encounter Visit Diagnoses Diagnosis Pain Generalized pain documented in this encounter
--- OUTSIDE RECORDS SUMMARY | 2024-07-06 16:01 | XMS_ITS | Clinical Summary ---
Author Organization [facility] Address [facility] [place] [address] Care Team Providers Care Line Supply Name Role Phone Nicky Dave APRN Primary Care Provider [phone] Allergies Active Allergy Reactions Criticality Noted Date Comments Dye Itching 03/03/2016 Allergy to IV Dye Ibuprofen Nausea Only 03/03/2016 Medications Medication Sig Dispensed Refills Start Date End Date Status cyclobenzaprine (FLEXERIL) 10 mg Tablet Take 1 tablet by mouth nightly. 30 tablet 07/20/2017 Active meloxicam (MOBIC) 15 mg Tablet Take 1 tablet by mouth daily. 30 tablet 07/20/2017 Active Active Problems Problem Noted Date Diagnosed Date Herniation of lumbar intervertebral disc with ra diculopathy 03/03/2016 Overview (03/03/2016): Right L4-5. Social History Tobacco Use Types Packs/Day Years Used Date Smoking Tobacco: Every Day Cigarettes Smokeless Tobacco: Never Comments:on estelle smokes 5 cigarettes a day Sex and Gender Information Value Date Recorded Sex Assigned at Not on file Gender Identity Not on file Sexual Orientation Not on file Last Filed Vital Signs Vital Sign Reading [...] Mass Index 19.37 07/20/2017 12:50 PM EDT Plan of Treatment Health Maintenance Due Date Last Done Comments CT Colonography 1966 Colonoscopy 1966 Colorectal Cancer Screening 1966 FIT DNA 1966 FIT 1966 Sigmoidoscopy (10 year) with FIT yearly 1966 Sigmoidoscopy 1966 HIV screen 1984 Hepatitis C Screening 1984 Lipid Screening 1984 Hepatitis B vaccine (0-59 yrs) (1) 1985 Tdap adult 1985 Tetanus vaccine 1985 Zoster vaccine (1 of 2) 2016 Advance Directive 2021 Covid-19 Vaccine (1 - 2022-24 season) 2024 Influenza (Flu) vaccine (1 o f 1 - Influenza standard series) 06/25/2024 Care Teams Line Supply Relationship Specialty Start Date End Date Nicky Dave APRN [address] [place], [place] [id number] PCP - General Family Medicine 07/01/17
--- OUTSIDE RECORDS SUMMARY | 2024-07-06 16:01 | XMS_ITS | Encounter Summary ---
Author Organization [facility] Address [facility] [place] [address] Care Team Providers Care Licensing And Registration Director Name Role Phone Ella Alex RAJINDER Primary Care Provider [phone] Encounter Details Date Type Department Care Team (Latest Contact Info) Description 03/03/2016 6:53 AM EDT - 03/03/2016 11:59 PM EDT Hospital Encounter XRay at [address] [place] [address] Victor Hugo Almeida MD [facility] [place] [address] L4-L5 disc bulge; Lumbar nerve root compression; Right leg pain Discharge Disposition: Home Social History Tobacco Use [...] Procedure Name Priority Date/Time Associated Diagnosis Comments XR LUMBAR SPINE 2 OR 3 VIEWS Routine 03/03/2016 7:03 AM EDT L4-L5 disc bulge Lumbar nerve root compression Right leg pain documented in this encounter Results * XR Lumbar Spine 2 Or 3 Views (GENERIC) (03/03/2016 7:03 AM EDT) Anatomical Region Laterality Modality L-spine N/A Digital Radiogra phy Impressions 03/03/2016 3:07 PM EDT IMPRESSION: No evidence for fracture or for malalignment. Vertebral body heights and intervertebral disc spaces are preserved. No evidence for anterior retrolisthesis. Narrative 03/03/2016 3:07 PM EDT EXAMINATION: XR LUMBAR SPINE 2 OR 3 VIEWS CLINICAL HISTORY: AP, lat flex/ext (3 views) to evaluate L4-L5 disc extrusion, right lateral recess stenosis compression on right L4 nerve root, right leg pain TECHNIQUE: AP and lateral flexion-extension lumbar spine COMPARISON: None FINDINGS: There are 5 nonrib-bearing lumbar-type vertebral bodies. Flexion extension standing views demonstrate normal anterior posterior spinal alignment. The lamina appear well aligned. There is no evidence for anterior or retrolisthesis. Intervertebral disc space heights and disc spaces are preserved. Minor superior endplate degenerative changes at L3 and L4. Procedure Note Latonya Mueller MD - 03/03/2016 EXAMINATION: XR LUMBAR SPINE 2 OR 3 VIEWS CLINICAL HISTORY: AP, lat flex/ext (3 views) to evaluate L4-L5 discextrusion, right lateral recess stenosis compression on right L4 nerve root, rightleg pain TECHNIQUE: AP and lateral flexion-extension lumbar spine COMPARISON: None FINDINGS: There are 5 nonrib-bearing lumbar-type vertebral bodies. Flexionextension standing views demonstrate normal anterior posterior spinal alignment.The lamina appear well aligned. There is no evidence for anterior orretrolisthesis. Intervertebral disc space heights and disc spaces are preserved. Minorsuperior endplate degenerative changes at L3 and L4. IMPRESSION IMPRESSION: No evidence for fracture or for malalignment. Vertebral body heights and intervertebral disc spaces are preserved. No evidence for anterior retrolisthesis. Victor Hugo Almeida MD IMG DX ORDERABLES documented in this encounter Visit Diagnoses Diagnosis L4-L5 disc bulge Displacement of lumbar intervertebral disc without myelopathy Lumbar nerve root compression Thoracic or lumbosacral neuritis or radiculitis, unspecified Right leg pain Pain in limb documented in this encounter Care Teams Licensing And Registration Director Relationship Specialty Start Date End Date Ella Alex APRN PCP - General Family Medicine 02/24/16 12/20/16 documented as of this encounter
--- OUTSIDE RECORDS SUMMARY | 2024-07-06 16:01 | XMS_ITS | Encounter Summary ---
[place] [address] Care Team Providers Care Separator Operator [employer] Name Role Phone Ella Alex APRN Primary Care Provider [phone] Reason for Referral * Diagnostic Test (Routine) - Specialty Diagnoses / Procedures Referred By Contac t Referred To Contact Procedures MRI Lumbar Spine Without Contrast (GENERIC) [facility] [place] [address] [place] [address] Referral ID Status Reason Start Date Expiration Date Visits Requested Visits Authorized [id number] Specialty Service Requested 03/06/2016 09/02/2016 1 1 Encounter Details Date Type Department Care Team (Late st Contact Info) Description 03/06/2016 External Results [place] [address] Provider, Scanning Social History Tobacco Use Types Packs/Day Years [...] Procedure Name Priority Date/Time Associated Diagnosis Comments MRI LUMBAR SPINE WITHOUT CONTRAST Routine 02/25/2016 documented in this encounter Results * MRI Lumbar Spine Without Contrast (GENERIC) (02/25/2016) Anatomical Region Laterality Modality L-spine Magnetic Resonan ce Historical Provider IMG MRI ORDERABLE S documented in this encounter Visit Diagnoses Not on filedocumented in this encounter Care Teams Separator Operator Shellfish Meats Relationship Specialty Start Date End Date Ella Alex APRN PCP - General Family Medicine 02/24/16 12/20/16 documented as of this encounter
--- OUTSIDE RECORDS SUMMARY | 2024-07-06 16:01 | XMS_ITS | Clinical Summary ---
Author Organization [facility] Address [address] [place] [address] Care Team Providers Care Sign Language Teacher Name Role Phone Yamilka Jones MACHINE MAINTENANCE Primary Care Provider Social History Tobacco Use Types Packs/Day Years Used Date Smoking Tobacco: Never Assessed Interpersonal Safety Answer Date Record ed Physically Hurt Never 05/26/2020 Verbally Threaten Not on file 05/26/2020 Sex and Gender Information Value Date Recorded Sex Assigned at Not on file Gender Identity Not on file Sexual Orientation Not on file Plan of Treatment Health Maintenance Due Date Last Done Comments Hepatitis C Screen 1966 Hepatitis B Vaccine (1 of 3 - 19+ 3-dose series) 12/11 COVID-19 Vaccine ( season) 2024 Care Teams Sign Language Teacher Relationship Specialty Start Date End Date Yamilka Jones NP [address] [place] [phone] PCP - General 01/23/14
[2024-07-06 17:47] LABS: COVID-19 PCR POSITIVE (Negative)
== END 2024-07-06 16:00 | disposition home or self-care (01) ==
LOC: LBN 15:59
PROVIDERS: PCP Family Medicine; Visit Provider Physician Assistant Medical
DX: U07.1 COVID-19 (principal)
CPT/HCPCS: 87635

== ENCOUNTER 2025-02-15 06:20 | Emergency (ER) | payer MEDICAID, SELFPAY ==
[2025-02-15 06:25] VITALS: BP 125/80; PULSE 73; RESP 17; TEMP 36.5; O2SAT 95
[2025-02-15] MEDS: traMADol 50 MG TAB PO (07:03)
[2025-02-15] MEDS: Acetaminophen 500 MG TAB 1000 MG PO (07:03)
--- NOTE | 2025-02-15 08:04 | W.ED.GENAD ---
Discharge Plan Disposition Patient Disposition: Home Condition: Stable Discharge Details Clinical Impression: Left shoulder pain Primary Care Provider: Les Fisher ED Provider: Shandra Calvillo Home Meds and New Rx's Prescriptions: No Action ibuprofen 600 mg tablet 600 mg PO TID PRN Patient Comments: TAKE ONE TABLET BY MOUTH THREE TIMES A DAY NEEDED FOR PAIN Discharge Instructions Instructions: Shoulder Pain ED Additional Instructions: keep your ortho appointment. further pain management can be managed through them or your PCP in addition to the ibuprofen, start taking tylenol every 4 hours HPI General Date/Time Provider Initiated Documentation: 02/15/25 06:21. Limitations to Documentation: no limitations. Information obtained by: patient. HPI Narrative: 59-year-old gentleman with chronic left shoulder pain and prior diagnosis of rotator cuff injury presents for evaluation of acute worsening of his chronic pain. He reports that his pain is usually worse in the morning time and has a lot of stiffness in that joint. He states that once he Starts to move around it does feel better. He has been taking ibuprofen 3 times daily without much relief. No additional pain medications have been tried. 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 He reports that he has a follow-up appointment with orthopedic surgery tomorrow. He denies that he has had any new trauma or injury to the shoulder. Denies any fever chills or tingling. Related Data Home Medications ?Medication ?Instructions ?Recorded ?Confirmed ibuprofen 600 mg tablet 600 mg PO TID PRN 02/15/25 02/15/25 Allergies Allergy/AdvReac Type Severity Reaction Status Date / Time Iodinated Contrast Media Allergy Unknown itching Unverified 02/15/25 06:25 (Iodinated Contrast Media - IV Dye) General Stated Complaint: Orthopedic BRENDA: 4 Exam Narrative Exam Narrative: Review of Systems: All systems reviewed & are unremarkable except as noted in HPI and below Well-developed, no acute distress NCAT unlabored respiratory effort Left shoulder without joint effusion, redness or limited range of motion Course Vital Signs Vital signs: Vital Signs Temperature 36.5 C 02/15/25 06:25 Pulse 73 02/15/25 06:25 Respiratory Rate 17 02/15/25 06:25 Blood Pressure 125/80 02/15/25 06:25 Pulse Oximetry 95 02/15/25 06:25 Temperature 36.5 C 02/15/25 06:25 Temperature Source Temporal Artery Scan 02/15/25 06:25 Pulse 73 02/15/25 06:25 Respiratory Rate 17 02/15/25 06:25 Blood Pressure 125/80 02/15/25 06:25 Blood Pressure Position Sitting 02/15/25 06:25 Pulse Oximetry 95 02/15/25 06:25 Oxygen Delivery Method Room Air 02/15/25 06:25 Oxygen Flow Rate 0 02/15/25 06:25 Pain Level 7 02/15/25 06:25 Medical Decision Making Emergent evaluation of acute on chronic left shoulder pain. Patient has a known rotator cuff injury and has follow-up with orthopedic surgery. Given that he has not had any new or acute trauma, I do not feel that repeat imaging would be indicated today. He has no signs of a septic arthritis. He has had no recent trauma. I do not feel that this left shoulder pain is an anginal equivalents. Treated with Tylenol and Ultram in the emergency department. Recommended adding Tylenol to his home pain control regimen. Further pain control should come from PCP or his orthopedic surgeon. Quality:SDOH Health Related Social Needs: No Data to Display PFSH All Active Problems (Updated 02/15/25 @ 06:59 by Shandra Calvillo MD) Left shoulder pain (Acute) Encounter for colorectal cancer screening (Acute) Plantar wart (Acute 07/25/14) Neoplasm of skin (Acute 01/22/14) Medical History (Updated 02/15/25 @ 06:59 by Shandra Calvillo MD) Nondisplaced fracture of fifth left metatarsal bone (~04/2010) History of nephrolithiasis Gastroesophageal reflux disease Tobacco use Hx of substance abuse Genital herpes Migraine Erectile dysfunction Back pain, lumbosacral Surgical History (Updated 10/13/18 @ 10:48 by Andra Felder RN) H/O colonoscopy (09/30/18) 09/30/18 Dr Peraza, no abnormalities, repeat 10 years Hx of arthroscopy of knee Hx of hernia repair Social History Smoking/Tobacco Use Status: Current every day Tobacco Type: cigarettes Smoking packs per day: 1 Smoking cigarettes per day: 20.0 Years smoked: 30 Smoking pack-years: 30.00 Tobacco: How many years used: 30 Smoking risk assessment performed?: Yes Alcohol Intake: current Alcohol Intake frequency: 0-2 drinks per day Alcohol type: beer and wine Drug use: Occasionally Substance use type: marijuana Details: 3 sober from cocaine Housing: house Do you feel safe at home: Yes Do you feel safe in your relationship?: Yes PAWSS Have you Been Recently Intoxicated or Drunk Within the Last 30 days?: No Have you Ever Experienced Previous Episodes of Alcohol Withdrawal?: No Have you ever Experienced Withdrawal Seizures?: No Have you ever Experienced Delirium Tremens(DT)s?: No Have you ever undergone Alcohol Rehabilitation Treatment (i.e, inpt ot outpatient treatment programs)?: No Have you ever Experienced Blackouts?: No Have you ever Combined Alcohol with other Downers within the last 90 days?: No Have you ever Combined Alcohol with any other Substance of Abuse during the last 90 days?: No Positive Blood Alcohol level on Presentation? [PCS.BAL]: No Evidence of Increased Autonomic Activity (i.e. HR>120, tremor, sweating, agitation, nausea)?: No Result: 0
== END 2025-02-15 07:08 | disposition home or self-care (01) ==
LOC: ER 07:10
PROVIDERS: Emergency Provider Emergency Medicine; PCP Student in an Organized Health Care Education/Training Program
DX: M25.512 Pain in left shoulder (principal); F17.210 Nicotine dependence, cigarettes, uncomplicated
CPT/HCPCS: 99283

== ENCOUNTER 2025-05-17 01:12 | Outpatient (CLI) | payer MEDICAID, SELFPAY ==
--- NOTE | 2025-05-17 | DI.CTLCSR_ITS ---
Exam(s) CT CHEST LUNG CANCER SCREEN EXAM: CT CHEST LUNG CANCER SCREEN CLINICAL HISTORY: NICOTINE DEPENDENCE F17.210 30+PPY NO SIGN SYMPTOMS LUNG CA INCLUDING TECHNIQUE: Imaging Protocol: Axial computed tomography images with coronal and sagittal reformatted images were created and reviewed. Low dose screening protocol. COMPARISON: CT CT CHEST WO from 04/12/2024 FINDINGS: Tracheobronchial tree: No bronchiectasis or mucus plugging. Mediastinum and Naty: No dominant adenopathy or fluid collection. Pulmonary parenchyma: No consolidation or dominant measurable mass. [id number] emphysematous changes, greater at the upper lobes.. No significant interstitial changes. Lung Nodules: There are few stable bilateral micro nodules Pleura: No effusion. No pneumothorax. Heart: The heart is not dilated. Mild coronary artery calcifications are seen. No pericardial effusion. Aorta: Thoracic aorta non-dilated. Upper abdomen: Unremarkable. Bones: Unremarkable for age. Soft Tissues: Unremarkable. IMPRESSION: No suspicious pulmonary nodules. Lung RADS Cat 2 - Benign Appearance / Behavior: Nodules with a very low likelihood of becoming a clinically active cancer due to size or lack of growth Lung-RADS 1.0 CATEGORIES: Category 0 - Prior chest CT exam(s) being located for comparison. Category 1 - Annual screening in 12 months. No nodules or definitely benign nodules. Category 2 - Annual screening in 12 months. Benign appearance. Nodules with low likelihood of becoming active cancer. Category 3 - 6-month follow-up. Probably benign. Short-term follow-up suggested. Nodules with low likelihood of becoming active cancer. Category 4A - 3-month follow-up and CT/PET if >8 mm in size. Suspicious finding. Findings which require additional testing. Category 4B - Findings which require additional testing and tissue sampling. Category 4X - Category 3 or 4 nodules with additional features or imaging findings that increases the suspicion of malignancy. Modifier S- Potentially clinically significant findings (non lung cancer) RADIATION DOSE DELIVERED: 18.65mGy.cm Total DLP DATA REPOSITORY: All CT scans at this facility are submitted to the National Radiology Data Registry (NRDR) Dose Index Registry (DIR) with the [employer] ([employer]). RADIATION OPTIMIZATION: All CT scans at this facility use at least one of these dose optimization techniques: automated exposure control; mA and/or kV adjustment per patient size (includes targeted exams where dose is matched to clinical indication); or iterative reconstruction.
== END 2025-05-17 01:32 ==
PROVIDERS: PCP Student in an Organized Health Care Education/Training Program; Visit Provider Student in an Organized Health Care Education/Training Program
DX: Z12.2 Encounter for screening for malignant neoplasm of respiratory organs (principal); F17.210 Nicotine dependence, cigarettes, uncomplicated
CPT/HCPCS: 71271